=== PATIENT | female | born 1955 | race Native Hawaiian/Other Pacific Islander ===

== ENCOUNTER → 2016-10-21 | Outpatient (CLI) | payer MEDICARE, OTHER ==
--- NOTE | 2016-10-21 15:15 | XR ---
EXAMINATION TYPE: XR chest 2V DATE OF EXAM: 10/21/2016 3:09 PM COMPARISON: 12/31/11 HISTORY: Shortness of breath TECHNIQUE: Frontal and lateral views of the chest are obtained. FINDINGS: Scattered senescent parenchymal changes noted. Hyperinflation compatible with COPD. No evidence for infiltrate. No evidence for atelectasis. Heart size is stable. Mediastinal structures are stable and grossly unremarkable. No evidence for hilar prominence. Degenerative changes dorsal spine. IMPRESSION: 1. No evidence for acute pulmonary disease.
== END | disposition home or self-care (01) ==
LOC: RADXRMAIN 14:52
PROVIDERS: ATTEND Nurse Practitioner Primary Care
DX: R05 Cough (principal)
CPT/HCPCS: 71020

== ENCOUNTER → 2016-12-28 | Outpatient (CLI) | payer MEDICARE, OTHER ==
[2016-12-28 09:25] LABS: Basophils # (A) 0.1 k/uL (0-0.2); Basophils % (A) 1 %; CH 28.9; CHCM 32.3; Eosinophils # (A) 0.4 k/uL (0-0.7); Eosinophils % (A) 4 %; HCT 46.4 % (34.0-46.0); HDW 2.44; HGB 14.8 gm/dL (11.4-16.0); Luc # (Auto) 0.45; Luc % (Auto) 4; Lymphocytes # (A) 2.7 k/uL (1.0-4.8); Lymphocytes % (A) 25 %; MCH 28.7 pg (25.0-35.0); MCHC 31.9 g/dL (31.0-37.0); Mean Platelet Volume 8.3; Monocytes # (A) 0.6 k/uL (0-1.0); Monocytes % (A) 5 %; Neutrophils # (A) 6.6 k/uL (1.3-7.7); Neutrophils % (A) 61 %; RBC 5.16 m/uL (3.80-5.40); RDW 13.9 % (11.5-15.5); WBC 10.8 k/uL (3.8-10.6); WBC (Perox) 10.85
[2016-12-28 09:35] LABS: Glucose 150 mg/dL (74-99); Total Protein 7.6 g/dL (6.3-8.2)
[2016-12-28 09:36] LABS: ALT 39 U/L (9-52); AST 37 U/L (14-36); Alkaline Phosphatase 133 U/L (38-126); Anion Gap 13 mmol/L; Blood Urea Nitrogen 11 mg/dL (7-17); Calcium 8.8 mg/dL (8.4-10.2); Carbon Dioxide 26 mmol/L (22-30); Chloride 105 mmol/L (98-107); Cholesterol 158 mg/dL (<200); HDL Cholesterol 42 mg/dL (40-60); Non-African American GFR(MDRD) >60 (>60 ml/min/1.73 sqM); Potassium 4.3 mmol/L (3.5-5.1); Sodium 144 mmol/L (137-145); Total Bilirubin 0.8 mg/dL (0.2-1.3); Triglycerides 241 mg/dL (<150)
[2016-12-28 11:56] LABS: Hemoglobin A1C 6.9 % (4.2-6.1)
== END | disposition home or self-care (01) ==
LOC: LABWHC1 08:58
PROVIDERS: ATTEND Nurse Practitioner Primary Care
DX: E78.1 Pure hyperglyceridemia (principal); J44.9 Chronic obstructive pulmonary disease, unspecified; R73.09 Other abnormal glucose
CPT/HCPCS: 36415; 80053; 80061; 83036; 85025

== ENCOUNTER → 2017-02-07 | Outpatient (CLI) | payer MEDICARE, OTHER ==
--- NOTE | 2017-02-07 18:01 | XR ---
EXAMINATION TYPE: XR lumbar spine 2 or 3V DATE OF EXAM: 02/07/2017 5:08 PM COMPARISON: NONE HISTORY: Chronic back pain TECHNIQUE: 3 views FINDINGS: The lumbar vertebra have fairly normal alignment. Posterior elements are intact. Sacroiliac joints are intact. There is mild spurring of the endplates. There is no sign of compression fracture . IMPRESSION: Mild spondylotic changes. No fracture.
--- NOTE | 2017-02-07 18:05 | XR ---
EXAMINATION TYPE: XR thoracic spine 2V DATE OF EXAM: 02/07/2017 5:08 PM COMPARISON: NONE HISTORY: Back pain TECHNIQUE: 5 views FINDINGS: The vertebrae are fairly normal alignment. There is mild anterior spurring throughout the t horacic spine. There is no paraspinal mass. Posterior elements are intact. IMPRESSION: Mild multilevel spondylosis. No fracture seen.
== END | disposition home or self-care (01) ==
LOC: RADXRMAIN 16:00
PROVIDERS: ATTEND Internal Medicine
DX: M47.814 Spondylosis without myelopathy or radiculopathy, thoracic region (principal); M47.816 Spondylosis without myelopathy or radiculopathy, lumbar region
CPT/HCPCS: 72070; 72100

== ENCOUNTER → 2018-02-15 | Outpatient (CLI) | payer MEDICARE, OTHER ==
--- NOTE | 2018-02-15 08:44 | US ---
EXAMINATION TYPE: US abdomen complete DATE OF EXAM: 02/15/2018 COMPARISON: CT abdomen and pelvis January 02 2012 CLINICAL HISTORY: R74.8 elevated liver enzymes. EXAM MEASUREMENTS: Liver Length: 15.9 cm Gallbladder Wall: Surgically absent cm CBD: 0.5 cm Spleen: 10.9 cm Right Kidney: 12.5 x 5.6 x 5.0 cm Left Kidney: 13.3 x 5.7 x 5.6 cm Pancreas: Obscured by bowel gas Liver: Partially Obscured by overlying bowel gas. Gallbladder: Surgically absent Evidence for sonographic Miranda's sign: No CBD: wnl Spleen: wnl Right Kidney: wnl Left Kidney: wnl Upper IVC: Obscured by overlying bowel gas Abd Aorta: Partially Obscured by overlying bowel gas. Proximal aorta not well visualized. The visualized liver is heterogeneously hyperechoic. Evaluation for focal masses is suboptimal due to the heterogeneity. No suspicious intrahepatic ductal dilatation is seen. The intrahepatic portion of the IVC is not well seen and visualized abdominal aorta are within normal limits. The gallbladder is surgically absent.. Common bile duct is unremarkable. The pancreas is obscured by overlying bowel gas on images saved. The spleen is unremarkable. Kidneys are symmetric and free of hydronephrosis. No renal lesions are seen. IMPRESSION: Suboptimal study, heterogeneous hyperechoic appearance of liver is likely on basis of dif fuse fatty infiltration, product of underlying hepatocellular disease is not excluded. Imaging guided random biopsy for tissue analysis can be performed if desired.
== END | disposition home or self-care (01) ==
LOC: RADUSWWP 07:57
PROVIDERS: ATTEND Internal Medicine
DX: K76.9 Liver disease, unspecified (principal)
CPT/HCPCS: 76700

== ENCOUNTER → 2018-05-23 | Outpatient (CLI) | payer MEDICARE, OTHER ==
[2018-05-23 12:27] LABS: Basophils # (A) 0.1 k/uL (0-0.2); Basophils % (A) 1 %; Eosinophils # (A) 0.2 k/uL (0-0.7); Eosinophils % (A) 2 %; HCT 48.2 % (34.0-46.0); HGB 15.3 gm/dL (11.4-16.0); Lymphocytes # (A) 3.5 k/uL (1.0-4.8); Lymphocytes % (A) 34 %; MCH 28.5 pg (25.0-35.0); MCHC 31.7 g/dL (31.0-37.0); MCV 89.9 fL (80.0-100.0); Mean Platelet Volume 7.7; Monocytes # (A) 0.4 k/uL (0-1.0); Monocytes % (A) 4 %; Neutrophils # (A) 5.9 k/uL (1.3-7.7); Neutrophils % (A) 58 %; Platelet Count 256 k/uL (150-450); RBC 5.37 m/uL (3.80-5.40); RDW 13.4 % (11.5-15.5); WBC 10.2 k/uL (3.8-10.6)
[2018-05-23 12:33] LABS: ALT 47 U/L (9-52); AST 51 U/L (14-36); Albumin 3.8 g/dL (3.5-5.0); Alkaline Phosphatase 141 U/L (38-126); Anion Gap 6 mmol/L; Blood Urea Nitrogen 14 mg/dL (7-17); Calcium 8.6 mg/dL (8.4-10.2); Carbon Dioxide 29 mmol/L (22-30); Chloride 103 mmol/L (98-107); Cholesterol 177 mg/dL (<200); Glucose 171 mg/dL (74-99); HDL Cholesterol 51 mg/dL (40-60); LDL Cholesterol,Calculated 78 mg/dL (0-99); Potassium 4.4 mmol/L (3.5-5.1); Sodium 138 mmol/L (137-145); Total Bilirubin 0.7 mg/dL (0.2-1.3); Total Protein 7.1 g/dL (6.3-8.2); Triglycerides 241 mg/dL (<150)
[2018-05-23 18:21] LABS: Hemoglobin A1C 8.2 % (4.0-6.0)
== END | disposition home or self-care (01) ==
LOC: LABWHC1 11:44
DX: E78.1 Pure hyperglyceridemia (principal); E11.9 Type 2 diabetes mellitus without complications; E55.9 Vitamin D deficiency, unspecified
CPT/HCPCS: 36415; 80053; 80061; 82306; 83036; 85025

== ENCOUNTER → 2018-11-07 | Outpatient (CLI) | payer MEDICARE, OTHER ==
--- NOTE | 2018-11-07 12:02 | XR ---
EXAMINATION TYPE: XR chest 2V DATE OF EXAM: 11/07/2018 COMPARISON: Prior chest x-ray 10/21/2016 HISTORY: COPD exacerbation, cough and shortness of breath TECHNIQUE: Frontal and lateral views of the chest are obtained. FINDINGS: Patient is rotated. Cardiomediastinal silhouette, pulmonary vascularity and mair are stabl e. No evident airspace disease, pneumothorax, or pleural effusion. Lung volumes are low. IMPRESSION: No acute cardiopulmonary process.
== END | disposition home or self-care (01) ==
LOC: RADXRMAIN 09:54
PROVIDERS: ATTEND Internal Medicine
DX: J44.1 Chronic obstructive pulmonary disease with (acute) exacerbation (principal)
CPT/HCPCS: 71046

== ENCOUNTER 2018-11-09 17:12 | Inpatient (IN) | payer MEDICARE, OTHER ==
[2018-11-09] MEDS ORDERED: ALBUTEROL NEBULIZED 2.5 MG/3 ML INHALATION STA (17:24)
[2018-11-09] MEDS ORDERED: methylPREDNISolone SOD SUCCI 125 MG/2 ML VIAL IV STA (17:24)
[2018-11-09] MEDS ORDERED: IPRATROPIUM 0.5 MG/2.5 ML NEBU INHALATION STA (17:24)
--- NOTE | 2018-11-09 17:32 | ED ---
General Adult HPI - General Chief complaint: Shortness of Breath Stated complaint: ALFRED, Hx COPD Time Seen by Provider: 11/09/18 17:19 Source: patient, RN notes reviewed, old records reviewed Mode of arrival: ambulatory Limitations: no limitations - History of Present Illness Initial comments: 63-year-old female, history of COPD presenting with increased cough and dyspnea for the past one week. Patient was seen by her primary care physician 2 days ago, prescribed antibiotics and steroids, symptoms have failed to improve, they have worsened over the past several days. Cough is nonproductive. No history of fever or chills. No history of weight gain or lower extremity swelling. No history of CAD or congestive heart failure. Patient's does reports bilateral lower rib pain which is worse with coughing. - Related Data Home Medications Medication Instructions Recorded Confirmed Azithromycin [Zithromax Z-pack] See Taper PO DIRECTED 11/09/18 11/09/18 methylPREDNISolone Dose Pack See Taper PO DIRECTED 11/09/18 11/09/18 [Medrol Dose Pack] Allergies Allergy/AdvReac Type Severity Reaction Status Date / Time Iodinated Contrast- Oral and Allergy "THROAT Verified 11/09/18 18:58 IV Dye CLOSES UP" [Iodinated Contrast Media - IV Dye] ketorolac tromethamine Allergy Swelling Verified 11/09/18 18:58 [From Toradol] Sulfa (Sulfonamide Allergy Swelling Verified 11/09/18 18:58 Antibiotics) tromethamine Allergy Swelling Verified 11/09/18 18:58 cashews Allergy Unknown Uncoded 11/09/18 17:18 Review of Systems ROS Statement: Those systems with pertinent positive or pertinent negative responses have been documented in the HPI. ROS Other: All systems not noted in ROS Statement are negative. Past Medical History Past Medical History: COPD Additional Past Medical History / Comment(s): STM LOSS, INTERMITTENT NUMBNESS MORALES ARMS,CURRENT STEROID USE, GENERALIZED RASH FOR APPROX 4 MOS,,LEUKOCYTOSIS, MENIERE'S SYNDROME, OLD INJURY TO LEFT FOOT-PAINFUL AT TIMES W/ CERTAIN. MOVEMENTS,DEGENERATIVE DISC DISEASE TO NECK AND BACK History of Any Multi-Drug Resistant Organisms: None Reported Past Psychological History: No Psychological Hx Reported Smoking Status: Never smoker Past Alcohol Use History: None Reported Past Drug Use History: None Reported General Exam Limitations: no limitations General appearance: alert, in no apparent distress Head exam: Present: atraumatic, normocephalic Eye exam: Present: normal appearance, PERRL, EOMI ENT exam: Present: normal exam Neck exam: Present: normal inspection, tenderness Respiratory exam: Present: respiratory distress, wheezes, decreased breath sounds Cardiovascular Exam: Present: regular rate, normal rhythm GI/Abdominal exam: Present: soft. Absent: distended, tenderness Extremities exam: Present: normal inspection, normal capillary refill. Absent: pedal edema, calf tenderness Neurological exam: Present: alert, oriented X3, CN II-XII intact. Absent: motor sensory deficit Psychiatric exam: Present: normal affect, normal mood Skin exam: Present: dry, intact. Absent: cyanosis, diaphoretic Course Vital Signs 11/09/18 11/09/18 11/09/18 17:15 17:34 17:50 Temperature 98.4 F Pulse Rate 87 88 93 Respiratory 26 H Rate Blood Pressure 134/78 O2 Sat by Pulse 94 L Oximetry 11/09/18 11/09/18 19:00 19:02 Temperature Pulse Rate 88 Respiratory 26 H 22 Rate Blood Pressure 107/68 O2 Sat by Pulse 95 Oximetry EKG Findings - EKG Comments: EKG Findings:: EKG: Normal sinus rhythm, left axis deviation, LVH, rate of 80, MN interval 136, QRS duration 108, QTC 445, no ST segment changes Medical Decision Making - Medical Decision Making 63-year-old female history COPD presenting with cough and dyspnea. She has been on antibiotics and steroids from her primary care physician with minimal improvement. Patient has diminished breath sounds bilaterally with bilateral wheezing. Laboratory studies reveal mild leukocytosis, 14.1, stable hemoglobin , lactic of 2.7. Troponin and BNP are negative. Influenza negative. Chest x- ray does show concern for pulmonary edema versus interstitial pneumonia. Patient started on ceftriaxone and azithromycin, exam and history more consistent with pneumonia. Patient will be treated for COPD exacerbation and community-acquired pneumonia. Case discussed with Dr. Garcia, will admit patient , pulmonology placed on consult. - Lab Data Result diagrams: 11/09/18 18:30 11/09/18 18:30 Lab Results 11/09/18 11/09/18 11/09/18 Range/Units 18:30 18:30 18:30 WBC 14.1 H (3.8-10.6) k/uL RBC 5.12 (3.80-5.40) m/uL Hgb 14.7 (11.4-16.0) gm/dL Hct 45.9 (34.0-46.0) % MCV 89.6 (80.0-100.0) fL MCH 28.8 (25.0-35.0) pg MCHC 32.1 (31.0-37.0) g/dL RDW 13.6 (11.5-15.5) % Plt Count 241 (150-450) k/uL Neutrophils % 69 % Lymphocytes % 24 % Monocytes % 6 % Eosinophils % 1 % Basophils % 1 % Neutrophils # 9.7 H (1.3-7.7) k/uL Lymphocytes # 3.3 (1.0-4.8) k/uL Monocytes # 0.8 (0-1.0) k/uL Eosinophils # 0.1 (0-0.7) k/uL Basophils # 0.1 (0-0.2) k/uL PT (9.0-12.0) sec INR (<1.2) APTT (22.0-30.0) sec Sodium 136 L (137-145) mmol/L Potassium 4.4 (3.5-5.1) mmol/L Chloride 99 (98-107) mmol/L Carbon Dioxide 27 (22-30) mmol/L Anion Gap 10 mmol/L BUN 21 H (7-17) mg/dL Creatinine 0.83 (0.52-1.04) mg/dL Est GFR (CKD-EPI)AfAm 89 (>60 ml/min/1.73 sqM) Est GFR (CKD-EPI)NonAf 77 (>60 ml/min/1.73 sqM) Glucose 165 H (74-99) mg/dL Plasma Lactic Acid Ramu (0.7-2.0) mmol/L Calcium 8.9 (8.4-10.2) mg/dL Magnesium 2.1 (1.6-2.3) mg/dL Total Bilirubin 0.7 (0.2-1.3) mg/dL AST 35 (14-36) U/L ALT 37 (9-52) U/L Alkaline Phosphatase 127 H (38-126) U/L Total Creatine Kinase 137 H (30-135) U/L CK-MB (CK-2) 0.8 (0.0-2.4) ng/mL CK-MB (CK-2) Rel Index 0.6 Troponin I <0.012 (0.000-0.034) ng/mL NT-Pro-B Natriuret Pep pg/mL Total Protein 7.6 (6.3-8.2) g/dL Albumin 4.1 (3.5-5.0) g/dL Influenza Type A RNA (Not Detectd) Influenza Type B (PCR) (Not Detectd) 11/09/18 11/09/18 11/09/18 Range/Units 18:30 18:30 18:30 WBC (3.8-10.6) k/uL RBC (3.80-5.40) m/uL Hgb (11.4-16.0) gm/dL Hct (34.0-46.0) % MCV (80.0-100.0) fL MCH (25.0-35.0) pg MCHC (31.0-37.0) g/dL RDW (11.5-15.5) % Plt Count (150-450) k/uL Neutrophils % % Lymphocytes % % Monocytes % % Eosinophils % % Basophils % % Neutrophils # (1.3-7.7) k/uL Lymphocytes # (1.0-4.8) k/uL Monocytes # (0-1.0) k/uL Eosinophils # (0-0.7) k/uL Basophils # (0-0.2) k/uL PT 9.7 (9.0-12.0) sec INR 0.9 (<1.2) APTT 22.3 (22.0-30.0) sec Sodium (137-145) mmol/L Potassium (3.5-5.1) mmol/L Chloride (98-107) mmol/L Carbon Dioxide (22-30) mmol/L Anion Gap mmol/L BUN (7-17) mg/dL Creatinine (0.52-1.04) mg/dL Est GFR (CKD-EPI)AfAm (>60 ml/min/1.73 sqM) Est GFR (CKD-EPI)NonAf (>60 ml/min/1.73 sqM) Glucose (74-99) mg/dL Plasma Lactic Acid Ramu 2.6 H* (0.7-2.0) mmol/L Calcium (8.4-10.2) mg/dL Magnesium (1.6-2.3) mg/dL Total Bilirubin (0.2-1.3) mg/dL AST (14-36) U/L ALT (9-52) U/L Alkaline Phosphatase (38-126) U/L Total Creatine Kinase (30-135) U/L CK-MB (CK-2) (0.0-2.4) ng/mL CK-MB (CK-2) Rel Index Troponin I (0.000-0.034) ng/mL NT-Pro-B Natriuret Pep 163 pg/mL Total Protein (6.3-8.2) g/dL Albumin (3.5-5.0) g/dL Influenza Type A RNA (Not Detectd) Influenza Type B (PCR) (Not Detectd) 11/09/18 Range/Units 18:30 WBC (3.8-10.6) k/uL RBC (3.80-5.40) m/uL Hgb (11.4-16.0) gm/dL Hct (34.0-46.0) % MCV (80.0-100.0) fL MCH (25.0-35.0) pg MCHC (31.0-37.0) g/dL RDW (11.5-15.5) % Plt Count (150-450) k/uL Neutrophils % % Lymphocytes % % Monocytes % % Eosinophils % % Basophils % % Neutrophils # (1.3-7.7) k/uL Lymphocytes # (1.0-4.8) k/uL Monocytes # (0-1.0) k/uL Eosinophils # (0-0.7) k/uL Basophils # (0-0.2) k/uL PT (9.0-12.0) sec INR (<1.2) APTT (22.0-30.0) sec Sodium (137-145) mmol/L Potassium (3.5-5.1) mmol/L Chloride (98-107) mmol/L Carbon Dioxide (22-30) mmol/L Anion Gap mmol/L BUN (7-17) mg/dL Creatinine (0.52-1.04) mg/dL Est GFR (CKD-EPI)AfAm (>60 ml/min/1.73 sqM) Est GFR (CKD-EPI)NonAf (>60 ml/min/1.73 sqM) Glucose (74-99) mg/dL Plasma Lactic Acid Ramu (0.7-2.0) mmol/L Calcium (8.4-10.2) mg/dL Magnesium (1.6-2.3) mg/dL Total Bilirubin (0.2-1.3) mg/dL AST (14-36) U/L ALT (9-52) U/L Alkaline Phosphatase (38-126) U/L Total Creatine Kinase (30-135) U/L CK-MB (CK-2) (0.0-2.4) ng/mL CK-MB (CK-2) Rel Index Troponin I (0.000-0.034) ng/mL NT-Pro-B Natriuret Pep pg/mL Total Protein (6.3-8.2) g/dL Albumin (3.5-5.0) g/dL Influenza Type A RNA Not Detected (Not Detectd) Influenza Type B (PCR) Not Detected (Not Detectd) Disposition Clinical Impression: Acute exacerbation of chronic obstructive airways disease, Community acquired pneumonia Disposition: ADMITTED IP TO THIS HOSP Condition: Stable Is patient prescribed a controlled substance at d/c from ED?: No Referrals: Pinky Giraldo MD [Primary Care Provider] - 1-2 days Decision to Admit Reason: Admit from EC Decision Date: 11/09/18 Decision Time: 19:50
[2018-11-09 18:50] LABS: Basophils # (A) 0.1 k/uL (0-0.2); Basophils % (A) 1 %; Eosinophils # (A) 0.1 k/uL (0-0.7); Eosinophils % (A) 1 %; HCT 45.9 % (34.0-46.0); HGB 14.7 gm/dL (11.4-16.0); Lymphocytes # (A) 3.3 k/uL (1.0-4.8); Lymphocytes % (A) 24 %; MCH 28.8 pg (25.0-35.0); MCHC 32.1 g/dL (31.0-37.0); MCV 89.6 fL (80.0-100.0); Mean Platelet Volume 7.5; Monocytes # (A) 0.8 k/uL (0-1.0); Monocytes % (A) 6 %; Neutrophils # (A) 9.7 k/uL (1.3-7.7); Neutrophils % (A) 69 %; Platelet Count 241 k/uL (150-450); RBC 5.12 m/uL (3.80-5.40); RDW 13.6 % (11.5-15.5); WBC 14.1 k/uL (3.8-10.6)
--- NOTE | 2018-11-09 19:00 | XR ---
EXAMINATION TYPE: XR chest 2V DATE OF EXAM: 11/09/2018 COMPARISON: 11/07/2018 HISTORY: Difficulty breathing TECHNIQUE: Frontal and lateral views of the chest are obtained. FINDINGS: There is mild diffuse interstitial prominence throughout. This is has progressed in compar brenda to the prior of 11/07/2018. Cardia mediastinal silhouette is upper limits of normal. Mild multilev el degenerative changes of the thoracic spine are noted. IMPRESSION: Reticular interstitial opacities throughout may relate to mild interstitial pneumonitis or mild interstitial pulmonary edema.
[2018-11-09 19:02] LABS: Albumin 4.1 g/dL (3.5-5.0); Calcium 8.9 mg/dL (8.4-10.2); Magnesium 2.1 mg/dL (1.6-2.3); Potassium 4.4 mmol/L (3.5-5.1); Total Bilirubin 0.7 mg/dL (0.2-1.3); Total Protein 7.6 g/dL (6.3-8.2)
[2018-11-09 19:06] LABS: Creatine Kinase 137 U/L (30-135)
[2018-11-09] MEDS ORDERED: SODIUM CHLORIDE 0.9% 500 ML 500 ML IV ONE (19:16)
[2018-11-09] MEDS ORDERED: AZITHROMYCIN 500 MG in SODIUM CHLORIDE 0.9% 250 ML IVPB STA (19:17)
[2018-11-09 19:19] LABS: Creatine Kinase MB 0.8 ng/mL (0.0-2.4); Troponin I <0.012 ng/mL (0.000-0.034)
[2018-11-09 19:27] LABS: INR 0.9 (<1.2); Partial Thromboplastin Time 22.3 sec (22.0-30.0); Prothrombin Time 9.7 sec (9.0-12.0)
[2018-11-09] MEDS ORDERED: IPRATROPIUM-ALBUTEROL 3 ML NEB INHALATION PRN (19:44)
[2018-11-09] MEDS ORDERED: ALBUTEROL NEBULIZED 2.5 MG/3 ML INHALATION PRN (19:45)
[2018-11-09] MEDS: SODIUM CHLORIDE 0.9% 1,000 ML IV SCH (20:14)
[2018-11-09] MEDS: IPRATROPIUM-ALBUTEROL 3 ML NEB INHALATION SCH (20:33)
[2018-11-09 21:28] LABS: Glucose,Whole Blood 239 mg/dL (75-99)
[2018-11-09] MEDS ORDERED: MECLIZINE 25 MG TAB PO PRN (23:06)
[2018-11-09] MEDS ORDERED: traMADol 50 MG TAB PO PRN (23:06)
[2018-11-09] MEDS ORDERED: ALPRAZolam 0.5 MG TAB PO PRN (23:06)
[2018-11-09] MEDS ORDERED: IBUPROFEN 600 MG TAB PO PRN (23:06)
[2018-11-10] MEDS: INSULIN ASPART (NovoLOG) 100 UNIT/ML VIAL SQ SCH ×5 (00:03→21:03)
[2018-11-10] MEDS: methylPREDNISolone SOD SUCCI 125 MG/2 ML VIAL IV SCH ×4 (00:04→17:36)
[2018-11-10] MEDS: IPRATROPIUM-ALBUTEROL 3 ML NEB INHALATION SCH ×4 (04:37→20:43)
[2018-11-10] MEDS: FERROUS SULFATE 325 MG TAB PO SCH (07:28)
[2018-11-10] MEDS: SODIUM CHLORIDE 0.9% 1,000 ML IV SCH ×2 (07:29→21:04)
[2018-11-10 07:42] LABS: Glucose,Whole Blood 255 mg/dL (75-99)
[2018-11-10] MEDS ORDERED: metFORMIN 500 MG TAB PO SCH (09:00)
[2018-11-10] MEDS ORDERED: AZITHROMYCIN 500 MG in SODIUM CHLORIDE 0.9% 250 ML IVPB SCH (09:00)
[2018-11-10 11:31] LABS: Hemoglobin A1C 8.6 % (4.0-6.0)
[2018-11-10] MEDS: MORPHINE SULFATE 4 MG/ML SYRINGE IVP PRN ×3 (11:50→21:01)
[2018-11-10 12:04] LABS: Glucose,Whole Blood 229 mg/dL (75-99)
--- NOTE | 2018-11-10 12:38 | P.HPIM ---
History of Present Illness H&P Date: 11/10/18 This is a 63-year-old female patient of Dr. Giraldo and Dr. Ortega with past medical history of COPD, mild persistent asthma, chronic hypoxic respiratory failure on home O2 at 3 L nasal cannula, degenerative disc disease of the neck and back with extremity neuropathy, chronic leukocytosis monitored by Dr. Ballard. Patient had episode of atrial fibrillation after having colonoscopy and follow up with Dr. Ann. She has not required any anticoagulation. Regarding diabetes, patient states she takes the metformin as needed only. She states her last hemoglobin A1c was 6.8. Patient states that she has had difficulty breathing with a hacking cough with no sputum production. No chest pain that hurts when she takes a deep breath. She denies any fever, no leg edema. She has seen Dr. Giraldo and was started on steroids inhalers and antibiotic without improvement and patient came into [facility] for evaluation. She was afebrile, tachypneic, heart rate running in the 80s and 90s, pulse ox 94%. Blood pressure 134/78. Leukocytosis of 14.1, creatinine 0.83, blood sugar 239, lactic acid 2.6. Alkaline phosphatase 127, troponin negative, influenza testing negative. Chest x-ray shows reticular interstitial opacities throughout May relate to mild interstitial pneumonitis or mild interstitial pulmonary edema. ProBNP 163. Hemoglobin A1c 8.6. Patient was started on IV Solu-Medrol, IV fluids, nebulizer treatments antibiotics and consult was requested with Dr. Ortega and patient admitted to the [facility] floor. Review of Systems All systems: negative Constitutional: Reports fatigue, Reports weakness, Denies chills, Denies fever, Denies poor appetite, Denies weight loss Eyes: denies blurred vision, denies pain Ears, nose, mouth and throat: Denies dysphagia, Denies headache, Denies sore throat, Denies vertigo Cardiovascular: Reports decreased exercise tolerance, Reports dyspnea on exertion, Denies chest pain, Denies edema, Denies leg edema, Denies lightheadedness, Denies shortness of breath, Denies syncope Respiratory: Reports congestion, Reports cough, Reports dyspnea, Reports home oxygen, Reports respiratory infections, Reports wheezing, Denies cough with sputum, Denies excessive sputum, Denies hemoptysis Gastrointestinal: Denies abdominal pain, Denies diarrhea, Denies loss of appetite, Denies melena, Denies nausea, Denies vomiting Genitourinary: Denies dysuria, Denies hematuria, Denies urgency, Denies urinary frequency Musculoskeletal: Denies frequent falls, Denies gait dysfunction, Denies muscle weakness, Denies myalgias Integumentary: Denies pruritus, Denies rash, Denies wounds Neurological: Denies aphasia, Denies change in mentation, Denies change in speech, Denies gait dysfunction, Denies numbness, Denies seizures, Denies weakness Psychiatric: Denies anxiety, Denies depression Endocrine: Denies fatigue, Denies weight change Past Medical History Past Medical History: Atrial Fibrillation, Asthma, Chest Pain / Angina, COPD, Diabetes Mellitus, Memory Impairment, Osteoarthritis (OA), Pneumonia, Sleep Apnea/CPAP/BIPAP Additional Past Medical History / Comment(s): Short term memory LOSS, INTERMITTENT NUMBNESS MORALES arms, LEUKOCYTOSIS, pt stated she see's dr ballard-he monitors wbc, MENIERE'S SYNDROME, past stress test, 2008 OLD INJURY TO LEFT FOOT , never had sx on it-PAINFUL AT TIMES W/ CERTAIN. pt stated "has had afib after aa for sx, pt stated they felt she had a reaction to aa". MOVEMENTS, DEGENERATIVE DISC DISEASE TO NECK AND BACK, 02 3 liter n/c at hs and prn. History of Any Multi-Drug Resistant Organisms: None Reported Past Surgical History: Cholecystectomy, Heart Catheterization, Hysterectomy Additional Past Surgical History / Comment(s): "repair of membrane leakage rt side of head" had sx at [place]. colonosocpy/polypectomy Past Anesthesia/Blood Transfusion Reactions: No Reported Reaction, Previous Problems w/ Anesthesia Additional Past Anesthesia/Blood Transfusion Reaction / Comment(s): pt stated she ahs had episodes of afib when given aa and has'nt happened a otherwise, thinks it was adverse reaction to the aa." Smoking Status: Never smoker Additional Past Alcohol Use History / Comment(s): The patient is a lifelong still occur but was exposed to secondhand smoke. No marijuana, illicit drug use or alcohol use. - Past Family History Mother Additional Family Medical History / Comment(s): Mother at age 84 from COPD and lung cancer. Father Additional Family Medical History / Comment(s): Father at age 82 from pneumonia but also had history of COPD, lung tumor, Parkinson's. Brother(s) Additional Family Medical History / Comment(s): Patient has 2 brothers but she does not know their medical history. Sister(s) Additional Family Medical History / Comment(s): Patient has 6 sisters one has lung problems, one thyroid cancer, one with arthritis and bowel problems, one with cardiovascular disease, one has had 2 myocardial infarctions and a stroke, one large benign abdominal tumor. Medications and Allergies Home Medications Medication Instructions Recorded Confirmed Type ALPRAZolam [Xanax] 0.5 mg PO DAILY PRN 11/09/18 11/09/18 History Azithromycin [Zithromax Z-pack] See Taper PO DIRECTED 11/09/18 11/09/18 History Ferrous Sulfate [Feosol] 325 mg PO DAILY 11/09/18 11/09/18 History Ibuprofen [Motrin] 600 mg PO Q8HR PRN 11/09/18 11/09/18 History Meclizine [Antivert] 25 mg PO TID PRN 11/09/18 11/09/18 History Vitamin D3(Unknown Dose) 1 tab PO DAILY 11/09/18 11/09/18 History metFORMIN HCL [Glucophage] 500 mg PO DAILY PRN 11/09/18 11/09/18 History methylPREDNISolone Dose Pack See Taper PO DIRECTED 11/09/18 11/09/18 History [Medrol Dose Pack] traMADol HCL [Ultram] 50 mg PO Q6H PRN 11/09/18 11/09/18 History Allergies Allergy/AdvReac Type Severity Reaction Status Date / Time Iodinated Contrast- Oral and Allergy "THROAT Verified 11/09/18 18:58 IV Dye CLOSES UP" [Iodinated Contrast Media - IV Dye] ketorolac tromethamine Allergy Swelling Verified 11/09/18 18:58 [From Toradol] peanut Allergy Rash/Hives Verified 11/10/18 00:09 Sulfa (Sulfonamide Allergy Swelling Verified 11/09/18 18:58 Antibiotics) tromethamine Allergy Swelling Verified 11/09/18 18:58 [email or web address] Allergy Unknown Uncoded 11/09/18 17:18 Physical Exam Vitals: Vital Signs Temp Pulse Pulse Resp BP BP Pulse Ox 11/10/18 07:00 97.8 F 73 22 111/67 98 11/10/18 04:44 92 11/10/18 04:41 97 11/10/18 04:38 89 11/09/18 21:37 98.1 F 82 24 121/71 93 L 11/09/18 21:03 86 18 110/70 97 11/09/18 20:44 82 11/09/18 20:35 79 11/09/18 19:02 88 22 107/68 95 11/09/18 19:00 26 H 11/09/18 17:50 93 11/09/18 17:34 88 11/09/18 17:15 98.4 F 87 26 H 134/78 94 L Intake and Output 11/09/18 11/10/18 11/10/18 22:59 06:59 14:59 Intake Total 500 100 Output Total 2 Balance 500 98 Intake: Oral 500 100 Output: Stool 2 Other: Voiding Method Toilet Toilet # Voids 1 2 Weight 117.934 kg Gen: This is a morbidly obese 63-year-old female. She is sitting up in a chair and is shown to be in now to moderate respiratory distress. Increased shortness of breath with talking. HEENT: Head is atraumatic, normocephalic. Pupils equal, round. Sclerae is anicteric. NECK: Supple. No JVD. No lymphadenopathy. No thyromegaly. LUNGS: Lung sounds diminished with crackles in the right side. No intercostal retractions. HEART: Regular rate and rhythm. No murmur. ABDOMEN: Soft. Bowel sounds are present. No masses. No tenderness. EXTREMITIES: No pedal edema. No calf tenderness. NEUROLOGICAL: Patient is awake, alert and oriented x3. Cranial nerves 2 through 12 are grossly intact. Results CBC & Chem 7: 11/09/18 18:30 11/09/18 18:30 Labs: Abnormal Lab Results - Last 24 Hours (Table) 11/09/18 11/09/18 11/09/18 Range/Units 18:30 18:30 18:30 WBC 14.1 H (3.8-10.6) k/uL Neutrophils # 9.7 H (1.3-7.7) k/uL Sodium 136 L (137-145) mmol/L BUN 21 H (7-17) mg/dL Glucose 165 H (74-99) mg/dL POC Glucose (mg/dL) (75-99) mg/dL Plasma Lactic Acid Ramu (0.7-2.0) mmol/L Alkaline Phosphatase 127 H (38-126) U/L Total Creatine Kinase 137 H (30-135) U/L 11/09/18 11/09/18 11/09/18 Range/Units 18:30 21:24 22:25 WBC (3.8-10.6) k/uL Neutrophils # (1.3-7.7) k/uL Sodium (137-145) mmol/L BUN (7-17) mg/dL Glucose (74-99) mg/dL POC Glucose (mg/dL) 239 H (75-99) mg/dL Plasma Lactic Acid Ramu 2.6 H* 2.6 H* (0.7-2.0) mmol/L Alkaline Phosphatase (38-126) U/L Total Creatine Kinase (30-135) U/L 11/10/18 Range/Units 07:21 WBC (3.8-10.6) k/uL Neutrophils # (1.3-7.7) k/uL Sodium (137-145) mmol/L BUN (7-17) mg/dL Glucose (74-99) mg/dL POC Glucose (mg/dL) 255 H (75-99) mg/dL Plasma Lactic Acid Ramu (0.7-2.0) mmol/L Alkaline Phosphatase (38-126) U/L Total Creatine Kinase (30-135) U/L Thrombosis Risk Factor Assmnt - DVT/VTE Prophylaxis DVT/VTE Prophylaxis: Pharmacologic Prophylaxis ordered - Choose All That Apply Any of the Below Risk Factors Present?: Yes Each Factor Represents 1 point: Abnormal pulmonary function (COPD), Obesity ( BMI >25) Other Risk Factors: Yes Each Risk Factor Represents 2 Points: Age 61-74 years Other congenital or acquired thrombophilia - If yes, enter type in comment: No Thrombosis Risk Factor Assessment Total Risk Factor Score: 4 Thrombosis Risk Factor Assessment Level: Moderate Risk Assessment and Plan Plan: 1. Acute on chronic hypoxic respiratory failure secondary to pneumonitis and COPD exacerbation, mild persistent asthma and sepsis that failed outpatient treatment. Consult with Dr. Ortega. Continue Solu-Medrol 60 mg every 6 hours, DuoNeb treatments 4 times daily and every 4 hours as needed, Pulmicort 1 mg twice daily, IV antibiotics with azithromycin and ceftriaxone. Echocardiogram ordered to check for pulmonary hypertension 2. Mild persistent asthma. Continue as in #1. Patient states she is to start monthly injections with Dr. Ortega but has not followed up since last March. 3. Chronic hypoxic respiratory failure on home O2 at 3 L nasal cannula. 4. Chronic leukocytosis under the care of Dr. Ballard next field generalized anxiety disorder. Continue alprazolam 0.5 mg daily as needed. 5. Chronic neck and back pain. Continue tramadol 50 mg every 6 hours as needed. 6. Diabetes mellitus type 2, uncontrolled with hyperglycemia. Elevated hemoglobin A1c. Metformin will be increased to twice daily 500 mg and start NovoLog scale with meals and at bedtime. 7. DVT prophylaxis. Lovenox subcu. 8. GI prophylaxis. Pepcid. Patient will be admitted to the hospital for a minimum of 3 night stay. Discharge plan: Most likely return home Impression and plan of care have been directed as dictated by the signing physician. Clarisse Jewell nurse practitioner acting as scribe for signing physician.
--- NOTE | 2018-11-10 13:06 | P.CNPUL ---
History of Present Illness Consult date: 11/10/18 Reason for consult: dyspnea, cough, asthma, COPD, pneumonia Chief complaint: Cough and shortness of breath History of present illness: Patient seen and examined covering for Dr. Ortega. This is a 63-year-old female who presented to the emergency department complaining of cough and shortness of breath. The patient states she follows with Dr. Ortega in the office and has a history of COPD. She states that she is on home oxygen at 3-4 L nasal cannula [id number]. She also does have a history of obstructive sleep apnea but states she was intolerant of CPAP in the past and she just wears oxygen at night. The patient is complaining of continued cough which is nonproductive. She denies fevers and chills at home. She states that she did see her primary care physician and was started on steroids and antibiotics but she continued to feel short of breath. She states she does have a nebulizer at home which she uses frequently but it did not seem to help her symptoms. The patient is apparently a lifelong never smoker but states she was exposed to secondhand smoke. Review of Systems All systems: negative Past Medical History Past Medical History: Atrial Fibrillation, Asthma, Chest Pain / Angina, COPD, Diabetes Mellitus, Memory Impairment, Osteoarthritis (OA), Pneumonia, Sleep Apnea/CPAP/BIPAP Additional Past Medical History / Comment(s): Short term memory LOSS, INTERMITTENT NUMBNESS MORALES arms, LEUKOCYTOSIS, pt stated she see's dr shane-he monitors wbc, MENIERE'S SYNDROME, past stress test, 2008 OLD INJURY TO LEFT FOOT , never had sx on it-PAINFUL AT TIMES W/ CERTAIN. pt stated "has had afib after aa for sx, pt stated they felt she had a reaction to aa". MOVEMENTS, DEGENERATIVE DISC DISEASE TO NECK AND BACK, 02 3 liter n/c at hs and prn. History of Any Multi-Drug Resistant Organisms: None Reported Past Surgical History: Cholecystectomy, Heart Catheterization, Hysterectomy Additional Past Surgical History / Comment(s): "repair of membrane leakage rt side of head" had sx at [place]. colonosocpy/polypectomy Past Anesthesia/Blood Transfusion Reactions: No Reported Reaction, Previous Problems w/ Anesthesia Additional Past Anesthesia/Blood Transfusion Reaction / Comment(s): pt stated she ahs had episodes of afib when given aa and has'nt happened a otherwise, thinks it was adverse reaction to the aa." Smoking Status: Never smoker Additional Past Alcohol Use History / Comment(s): The patient is a lifelong still occur but was exposed to secondhand smoke. No marijuana, illicit drug use or alcohol use. - Past Family History Mother Additional Family Medical History / Comment(s): Mother at age 84 from COPD and lung cancer. Father Additional Family Medical History / Comment(s): Father at age 82 from pneumonia but also had history of COPD, lung tumor, Parkinson's. Brother(s) Additional Family Medical History / Comment(s): Patient has 2 brothers but she does not know their medical history. Sister(s) Additional Family Medical History / Comment(s): Patient has 6 sisters one has lung problems, one thyroid cancer, one with arthritis and bowel problems, one with cardiovascular disease, one has had 2 myocardial infarctions and a stroke, one large benign abdominal tumor. Medications and Allergies Home Medications Medication Instructions Recorded Confirmed Type ALPRAZolam [Xanax] 0.5 mg PO DAILY PRN 11/09/18 11/09/18 History Azithromycin [Zithromax Z-pack] See Taper PO DIRECTED 11/09/18 11/09/18 History Ferrous Sulfate [Feosol] 325 mg PO DAILY 11/09/18 11/09/18 History Ibuprofen [Motrin] 600 mg PO Q8HR PRN 11/09/18 11/09/18 History Meclizine [Antivert] 25 mg PO TID PRN 11/09/18 11/09/18 History Vitamin D3(Unknown Dose) 1 tab PO DAILY 11/09/18 11/09/18 History metFORMIN HCL [Glucophage] 500 mg PO DAILY PRN 11/09/18 11/09/18 History methylPREDNISolone Dose Pack See Taper PO DIRECTED 11/09/18 11/09/18 History [Medrol Dose Pack] traMADol HCL [Ultram] 50 mg PO Q6H PRN 11/09/18 11/09/18 History Allergies Allergy/AdvReac Type Severity Reaction Status Date / Time Iodinated Contrast- Oral and Allergy "THROAT Verified 11/09/18 18:58 IV Dye CLOSES UP" [Iodinated Contrast Media - IV Dye] ketorolac tromethamine Allergy Swelling Verified 11/09/18 18:58 [From Toradol] peanut Allergy Rash/Hives Verified 11/10/18 00:09 Sulfa (Sulfonamide Allergy Swelling Verified 11/09/18 18:58 Antibiotics) tromethamine Allergy Swelling Verified 11/09/18 18:58 [email or web address] Allergy Unknown Uncoded 11/09/18 17:18 Physical Exam Osteopathic Statement: *. No significant issues noted on an osteopathic structural exam other than those noted in the History and Physical/Consult. Vitals: Vital Signs Temp Pulse Pulse Resp BP BP Pulse Ox 11/10/18 11:06 90 11/10/18 10:55 87 91 L 11/10/18 07:00 97.8 F 73 22 111/67 98 11/10/18 04:44 92 11/10/18 04:41 97 11/10/18 04:38 89 11/09/18 21:37 98.1 F 82 24 121/71 93 L 11/09/18 21:03 86 18 110/70 97 11/09/18 20:44 82 11/09/18 20:35 79 11/09/18 19:02 88 22 107/68 95 11/09/18 19:00 26 H 11/09/18 17:50 93 11/09/18 17:34 88 11/09/18 17:15 98.4 F 87 26 H 134/78 94 L Intake and Output 11/09/18 11/10/18 11/10/18 22:59 06:59 14:59 Intake Total 500 100 Output Total 2 Balance 500 98 Intake: Oral 500 100 Output: Stool 2 Other: Voiding Method Toilet Toilet # Voids 1 2 3 Weight 117.934 kg Gen.: Patient is alert and oriented 3, no acute distress, morbidly obese Cardiovascular: Regular rate and rhythm, S1/S2 Lungs: Bilateral crackles with hyperreactive cough Abdomen: Soft nontender nondistended positive bowel sounds Extremities: Trace edema Results - Laboratory Findings CBC and BMP: 11/09/18 18:30 11/09/18 18:30 PT/INR, D-dimer PT 9.7 sec (9.0-12.0) 11/09/18 18:30 INR 0.9 (<1.2) 11/09/18 18:30 Abnormal lab findings: Abnormal Labs 11/09/18 11/09/18 11/09/18 18:30 18:30 18:30 WBC 14.1 H Neutrophils # 9.7 H Sodium 136 L BUN 21 H Glucose 165 H POC Glucose (mg/dL) Hemoglobin A1c Plasma Lactic Acid Ramu Alkaline Phosphatase 127 H Total Creatine Kinase 137 H 11/09/18 11/09/18 11/09/18 18:30 18:30 21:24 WBC Neutrophils # Sodium BUN Glucose POC Glucose (mg/dL) 239 H Hemoglobin A1c 8.6 H Plasma Lactic Acid Ramu 2.6 H* Alkaline Phosphatase Total Creatine Kinase 11/09/18 11/10/18 11/10/18 22:25 07:21 08:57 WBC Neutrophils # Sodium BUN Glucose POC Glucose (mg/dL) 255 H Hemoglobin A1c Plasma Lactic Acid Ramu 2.6 H* 3.2 H* Alkaline Phosphatase Total Creatine Kinase 11/10/18 12:00 WBC Neutrophils # Sodium BUN Glucose POC Glucose (mg/dL) 229 H Hemoglobin A1c Plasma Lactic Acid Ramu Alkaline Phosphatase Total Creatine Kinase - Diagnostic Findings Chest x-ray: report reviewed, image reviewed Assessment and Plan Assessment: Acute on chronic hypoxic respiratory failure Interstitial pulmonary edema versus pneumonitis Hyperreactive cough Acute exacerbation of asthma/COPD, unknown asthma type History of obstructive sleep apnea, noncompliant with CPAP Morbid obesity Leukocytosis, possibly secondary to steroids, although it is noted by primary team that this is chronic and patient follows with hematology Elevated lactic acid possibly secondary to hypoxia Diabetes mellitus type 2 O2 to maintain saturation greater than or equal to 90%. Patient currently is on 2 L nasal cannula with O2 saturation 91% Pulmicort Duo nebs Perforomist Singulair Solu-Medrol Antibiotics Diuresis - monitor urine output and renal function AM CXR Echocardiogram pending Suspect cor pulmonale from uncontrolled obstructive sleep apnea Continue patient's home medications Sputum culture Decrease IVF Incentive spirometry and pulmonary hygiene Encourage ambulation Thank you for this consultation we will continue to follow along. Patient seen and examined covering for Dr. Ortega.
[2018-11-10] MEDS: FUROSEMIDE 10 MG/ML 2 ML VIAL IV SCH ×2 (13:20→21:03)
[2018-11-10] MEDS: metFORMIN 500 MG TAB PO SCH (17:36)
[2018-11-10 17:49] LABS: Glucose,Whole Blood 247 mg/dL (75-99)
--- NOTE | 2018-11-10 17:55 | ECHOF ---
Referral Reason:LVF MEASUREMENTS -------- HEIGHT: 157.5 cm WEIGHT: 117.9 kg BP: 117/70 RVIDd: 3.0 cm (< 3.3) IVSd: 1.3 cm (0.6 - 1.1) LVIDd: 3.7 cm (3.9 - 5.3) LVPWd: 1.4 cm (0.6 - 1.1) IVSs: 1.7 cm LVIDs: 2.7 cm LVPWs: 1.6 cm LA Diam: 3.4 cm (2.7 - 3.8) LAESV Index (A-L): 21.77 ml/m Ao Diam: 3.3 cm (2.0 - 3.7) AV Cusp: 2.4 cm (1.5 - 2.6) MV EXCURSION: 16.659 mm (> 18.000) MV EF SLOPE: 77 mm/s (70 - 150) EPSS: 1.6 cm MV E Raghavendra: 0.85 m/s MV DecT: 160 ms MV A Raghavendra: 1.01 m/s MV E/A Ratio: 0.84 RAP: 5.00 mmHg RVSP: 21.56 mmHg FINDINGS -------- Sinus rhythm. This was a technically adequate study. The left ventricular size is normal. There is moderate concentric left ventricular hypertrophy. O verall left ventricular systolic function is normal with, an EF between 55 - 60 %. The right ventricle is normal in size. Normal LA size by volume 22+/-6 ml/m2. The right atrium is normal in size. The aortic valve is trileaflet, and appears structurally normal. No aortic stenosis or regurgitation. The mitral valve is normal. Mild tricuspid regurgitation present. Right ventricular systolic pressure is normal at < 35 mmHg. The pulmonic valve was not well visualized. There is no pulmonic regurgitation present. The aortic root size is normal. IVC Not well visulized. There is no pericardial effusion. CONCLUSIONS -------- 1. Sinus rhythm. 2. This was a technically adequate study. 3. The left ventricular size is normal. 4. There is moderate concentric left ventricular hypertrophy. 5. Overall left ventricular systolic function is normal with, an EF between 55 - 60 %. 6. Normal LA size by volume 22+/-6 ml/m2. 7. The aortic valve is trileaflet, and appears structurally normal. No aortic stenosis or regurgitati on. 8. The mitral valve is normal. 9. Mild tricuspid regurgitation present. 10. Right ventricular systolic pressure is normal at < 35 mmHg. 11. The pulmonic valve was not well visualized. 12. The aortic root size is normal. 13. IVC Not well visulized. 14. There is no pericardial effusion. APPLICATIONS CONSULTANT: Venita Bunn RDCS
[2018-11-10 20:27] LABS: Glucose,Whole Blood 249 mg/dL (75-99)
[2018-11-10] MEDS: BUDESONIDE 1 MG/2 ML NEBU INHALATION SCH (20:43)
[2018-11-10] MEDS: FORMOTEROL FUMARATE 20 MCG/2 ML NEBU INHALATION SCH (20:43)
[2018-11-10] MEDS: MONTELUKAST 10 MG TAB PO SCH (20:53)
[2018-11-11] MEDS: methylPREDNISolone SOD SUCCI 125 MG/2 ML VIAL IV SCH ×3 (00:18→11:24)
[2018-11-11] MEDS: MORPHINE SULFATE 4 MG/ML SYRINGE IVP PRN ×5 (04:58→22:06)
[2018-11-11] MEDS: FAMOTIDINE 20 MG TAB PO SCH (08:00)
[2018-11-11] MEDS: ENOXAPARIN 40 MG/0.4 ML SYRINGE SQ SCH (08:00)
[2018-11-11] MEDS: FERROUS SULFATE 325 MG TAB PO SCH (08:00)
[2018-11-11] MEDS: metFORMIN 500 MG TAB PO SCH ×2 (08:00→17:00)
[2018-11-11] MEDS: INSULIN ASPART (NovoLOG) 100 UNIT/ML VIAL SQ SCH ×4 (08:00→21:46)
[2018-11-11] MEDS: AZITHROMYCIN 500 MG TAB PO SCH (08:00)
[2018-11-11 08:01] LABS: Glucose,Whole Blood 242 mg/dL (75-99)
[2018-11-11] MEDS: FUROSEMIDE 10 MG/ML 2 ML VIAL IV SCH ×2 (08:01→21:37)
[2018-11-11 08:10] LABS: HCT 44.7 % (34.0-46.0); HGB 13.9 gm/dL (11.4-16.0); MCH 28.5 pg (25.0-35.0); MCHC 31.1 g/dL (31.0-37.0); MCV 91.6 fL (80.0-100.0); Mean Platelet Volume 7.5; Platelet Count 253 k/uL (150-450); RBC 4.87 m/uL (3.80-5.40); RDW 13.8 % (11.5-15.5); WBC 12.2 k/uL (3.8-10.6)
[2018-11-11 08:24] LABS: ALT 30 U/L (9-52); AST 24 U/L (14-36); Alkaline Phosphatase 101 U/L (38-126); Anion Gap 13 mmol/L; Blood Urea Nitrogen 22 mg/dL (7-17); Carbon Dioxide 26 mmol/L (22-30); Chloride 100 mmol/L (98-107); Glucose 262 mg/dL (74-99); Potassium 4.5 mmol/L (3.5-5.1); Sodium 139 mmol/L (137-145); Total Bilirubin 0.5 mg/dL (0.2-1.3); Total Protein 7.3 g/dL (6.3-8.2)
[2018-11-11] MEDS: BUDESONIDE 1 MG/2 ML NEBU INHALATION SCH ×2 (08:28→19:33)
[2018-11-11] MEDS: FORMOTEROL FUMARATE 20 MCG/2 ML NEBU INHALATION SCH ×2 (08:28→19:33)
[2018-11-11] MEDS: IPRATROPIUM-ALBUTEROL 3 ML NEB INHALATION SCH ×4 (08:28→19:33)
[2018-11-11 12:15] LABS: Glucose,Whole Blood 271 mg/dL (75-99)
[2018-11-11] MEDS ORDERED: BENZONATATE 100 MG CAP PO PRN (12:15)
--- NOTE | 2018-11-11 12:21 | P.PN ---
Subjective Progress Note Date: 11/11/18 Patient seen and examined covering for Dr. Ortega. This is a 63-year-old female who presented to the emergency department complaining of cough and shortness of breath. The patient states she follows with Dr. Ortega in the office and has a history of COPD. She states that she is on home oxygen at 3-4 L nasal cannula [id number]. She also does have a history of obstructive sleep apnea but states she was intolerant of CPAP in the past and she just wears oxygen at night. The patient is complaining of continued cough which is nonproductive. She denies fevers and chills at home. She states that she did see her primary care physician and was started on steroids and antibiotics but she continued to feel short of breath. She states she does have a nebulizer at home which she uses frequently but it did not seem to help her symptoms. The patient is apparently a lifelong never smoker but states she was exposed to secondhand smoke. 2017: Patient seen and examined. Patient states she is still short of breath and coughing. She states that her cough is causing musculoskeletal pain. She states the morphine does help with that. She is on 2 L nasal cannula. The patient does have home oxygen. She has been afebrile and denies chills. Objective - Vital Signs Vital signs: Vital Signs Temp 97.7 F 11/11/18 06:02 Pulse 84 11/11/18 08:48 Resp 18 11/11/18 06:02 BP 123/68 11/11/18 06:02 Pulse Ox 95 11/11/18 08:29 Intake & Output 11/10/18 11/11/18 11/11/18 18:59 06:59 18:59 Output Total 0 0 Balance 0 0 Output: Stool 0 0 Other: Voiding Method Toilet Toilet Toilet Diaper Diaper # Voids 3 3 3 - Exam Gen.: Patient is alert and oriented 3, no acute distress, morbidly obese Cardiovascular: Regular rate and rhythm, S1/S2 Lungs: Bilateral crackles with hyperreactive cough Abdomen: Soft nontender nondistended positive bowel sounds Extremities: Trace edema - Labs CBC & Chem 7: 11/11/18 07:12 11/11/18 07:12 Labs: Abnormal Lab Results - Last 24 Hours (Table) 11/10/18 11/10/18 11/10/18 Range/Units 13:51 17:10 20:25 WBC (3.8-10.6) k/uL BUN (7-17) mg/dL Glucose (74-99) mg/dL POC Glucose (mg/dL) 247 H 249 H (75-99) mg/dL Plasma Lactic Acid Ramu 2.9 H* (0.7-2.0) mmol/L 11/11/18 11/11/18 11/11/18 Range/Units 07:12 07:12 07:25 WBC 12.2 H (3.8-10.6) k/uL BUN 22 H (7-17) mg/dL Glucose 262 H (74-99) mg/dL POC Glucose (mg/dL) 242 H (75-99) mg/dL Plasma Lactic Acid Ramu (0.7-2.0) mmol/L Microbiology - Last 24 Hours (Table) 11/09/18 18:30 Blood Culture - Preliminary Blood No Growth after 24 hours Assessment and Plan Assessment: Acute on chronic hypoxic respiratory failure Interstitial pulmonary edema versus pneumonitis Hyperreactive cough Acute exacerbation of asthma/COPD, unknown asthma type History of obstructive sleep apnea, noncompliant with CPAP Morbid obesity Leukocytosis, possibly secondary to steroids, although it is noted by primary team that this is chronic and patient follows with hematology Elevated lactic acid possibly secondary to hypoxia Diabetes mellitus type 2 O2 to maintain saturation greater than or equal to 90%. Patient currently is on 2 L nasal cannula with O2 saturation 91% Pulmicort Duo nebs Perforomist Singulair Solu-Medrol Antibiotics Diuresis - monitor urine output and renal function AM CXR reviewed - poor inspiratory effort, CM, mild interstitial edema Continue patient's home medications Sputum culture Incentive spirometry and pulmonary hygiene Encourage ambulation Add magosalon Patient seen and examined covering for Dr. Ortega.
--- NOTE | 2018-11-11 12:33 | P.PN ---
Subjective Progress Note Date: 11/11/18 This is a 63-year-old female patient of Dr. Giraldo and Dr. Ortega with past medical history of COPD, mild persistent asthma, chronic hypoxic respiratory failure on home O2 at 3 L nasal cannula, degenerative disc disease of the neck and back with extremity neuropathy, chronic leukocytosis monitored by Dr. Ballard. Patient had episode of atrial fibrillation after having colonoscopy and follow up with Dr. Ann. She has not required any anticoagulation. Regarding diabetes, patient states she takes the metformin as needed only. She states her last hemoglobin A1c was 6.8. Patient states that she has had difficulty breathing with a hacking cough with no sputum production. No chest pain that hurts when she takes a deep breath. She denies any fever, no leg edema. She has seen Dr. Giraldo and was started on steroids inhalers and antibiotic without improvement and patient came into [facility] emergency center for evaluation. She was afebrile, tachypneic, heart rate running in the 80s and 90s, pulse ox 94%. Blood pressure 134/78. Leukocytosis of 14.1, creatinine 0.83, blood sugar 239, lactic acid 2.6. Alkaline phosphatase 127, troponin negative, influenza testing negative. Chest x-ray shows reticular interstitial opacities throughout May relate to mild interstitial pneumonitis or mild interstitial pulmonary edema. ProBNP 163. Hemoglobin A1c 8.6. Patient was started on IV Solu-Medrol, IV fluids, nebulizer treatments antibiotics and consult was requested with Dr. Ortega and patient admitted to the [facility] floor. 11/11: Patient has been afebrile, heart rate running in 80s, pulse ox 95% on 2 L , blood pressure 123/68. White count is 12.2, hemoglobin 13.9, creatinine 0.66 , blood sugars up in the 240s. Chest x-ray has been obtained and report is pending. Echocardiogram reveals EF of 55-60%, moderate concentric left ventricular hypertrophy, mild tricuspid regurgitation. Dr. zapien suspect cor pulmonale from uncontrolled obstructive sleep apnea. Patient states she does not wear CPAP because she doesn't feel that it helps her and she only wears oxygen at night. Discussed in detail complications from obstructive sleep apnea. IV fluids will be discontinued. Solu-Medrol decreased to 40 mg every 8 hours Review of Systems All systems: negative Constitutional: Reports fatigue, Reports weakness, Denies chills, Denies fever, Denies poor appetite, Denies weight loss Eyes: denies blurred vision, denies pain Ears, nose, mouth and throat: Denies dysphagia, Denies headache, Denies sore throat, Denies vertigo Cardiovascular: Reports decreased exercise tolerance, Reports dyspnea on exertion, Denies chest pain, Denies edema, Denies leg edema, Denies lightheadedness, Denies shortness of breath, Denies syncope Respiratory: Reports congestion, Reports cough, Reports dyspnea, Reports home oxygen, Reports respiratory infections, Reports wheezing, Denies cough with sputum, Denies excessive sputum, Denies hemoptysis Gastrointestinal: Denies abdominal pain, Denies diarrhea, Denies loss of appetite, Denies melena, Denies nausea, Denies vomiting Genitourinary: Denies dysuria, Denies hematuria, Denies urgency, Denies urinary frequency Musculoskeletal: Denies frequent falls, Denies gait dysfunction, Denies muscle weakness, Denies myalgias Integumentary: Denies pruritus, Denies rash, Denies wounds Neurological: Denies aphasia, Denies change in mentation, Denies change in speech, Denies gait dysfunction, Denies numbness, Denies seizures, Denies weakness Psychiatric: Denies anxiety, Denies depression Endocrine: Denies fatigue, Denies weight change, reports abnormal blood sugars Objective - Vital Signs Vital signs: Vital Signs Temp 97.7 F 11/11/18 06:02 Pulse 80 11/11/18 08:29 Resp 18 11/11/18 06:02 BP 123/68 11/11/18 06:02 Pulse Ox 95 11/11/18 08:29 Intake & Output 11/10/18 11/11/18 11/11/18 18:59 06:59 18:59 Output Total 0 0 Balance 0 0 Output: Stool 0 0 Other: Voiding Method Toilet Toilet Toilet Diaper Diaper # Voids 3 3 - Exam Gen: This is a morbidly obese 63-year-old female. She is sitting up in a chair and is in no acute respiratory distress. HEENT: Head is atraumatic, normocephalic. Pupils equal, round. Sclerae is anicteric. NECK: Supple. No JVD. No lymphadenopathy. No thyromegaly. LUNGS: Lung sounds diminished with crackles in the right side. No intercostal retractions. HEART: Regular rate and rhythm. No murmur. ABDOMEN: Soft. Bowel sounds are present. No masses. No tenderness. EXTREMITIES: No pedal edema. No calf tenderness. NEUROLOGICAL: Patient is awake, alert and oriented x3. Cranial nerves 2 through 12 are grossly intact. - Labs CBC & Chem 7: 11/11/18 07:12 11/11/18 07:12 Labs: Abnormal Lab Results - Last 24 Hours (Table) 11/09/18 11/10/18 11/10/18 Range/Units 18:30 08:57 12:00 WBC (3.8-10.6) k/uL BUN (7-17) mg/dL Glucose (74-99) mg/dL POC Glucose (mg/dL) 229 H (75-99) mg/dL Hemoglobin A1c 8.6 H (4.0-6.0) % Plasma Lactic Acid Ramu 3.2 H* (0.7-2.0) mmol/L 11/10/18 11/10/18 11/10/18 Range/Units 13:51 17:10 20:25 WBC (3.8-10.6) k/uL BUN (7-17) mg/dL Glucose (74-99) mg/dL POC Glucose (mg/dL) 247 H 249 H (75-99) mg/dL Hemoglobin A1c (4.0-6.0) % Plasma Lactic Acid Ramu 2.9 H* (0.7-2.0) mmol/L 11/11/18 11/11/18 11/11/18 Range/Units 07:12 07:12 07:25 WBC 12.2 H (3.8-10.6) k/uL BUN 22 H (7-17) mg/dL Glucose 262 H (74-99) mg/dL POC Glucose (mg/dL) 242 H (75-99) mg/dL Hemoglobin A1c (4.0-6.0) % Plasma Lactic Acid Ramu (0.7-2.0) mmol/L Microbiology - Last 24 Hours (Table) 11/09/18 18:30 Blood Culture - Preliminary Blood No Growth after 24 hours Assessment and Plan Plan: 1. Acute on chronic hypoxic respiratory failure secondary to pneumonitis and COPD exacerbation, mild persistent asthma and sepsis that failed outpatient treatment. Consult with Dr. Ortega. Continue Solu-Medrol decreased to 40 mg every 8 hours, DuoNeb treatments 4 times daily and every 4 hours as needed, Pulmicort 1 mg twice daily, IV antibiotics with azithromycin and ceftriaxone. Echocardiogram as above 2. Mild persistent asthma. Continue as in #1. Patient states she is to start monthly injections with Dr. Ortega but has not followed up since last March. 3. Chronic hypoxic respiratory failure on home O2 at 3 L nasal cannula. 4. Chronic leukocytosis under the care of Dr. Ballard. 5. Chronic neck and back pain. Continue tramadol 50 mg every 6 hours as needed. 6. Diabetes mellitus type 2, uncontrolled with hyperglycemia. A1c 8.6. Metformin will be increased to twice daily 500 mg and start NovoLog scale with meals and at bedtime. 7. DVT prophylaxis. Lovenox subcu. 8. GI prophylaxis. Pepcid. 9. Generalized anxiety disorder. Continue alprazolam 0.5 mg daily as needed. 10. Obstructive sleep apnea noncompliant with CPAP with underlying chronic cor pulmonale and acute on chronic diastolic heart failure. Continue IV Lasix 20 mg every 12 hours.. Discharge plan: Most likely return home Impression and plan of care have been directed as dictated by the signing physician. Clarisse Jewell nurse practitioner acting as scribe for signing physician.
--- NOTE | 2018-11-11 14:46 | XR ---
EXAMINATION TYPE: XR chest 1V portable DATE OF EXAM: 11/11/2018 COMPARISON: 11/09/2018 INDICATION: Pneumonia TECHNIQUE: Frontal and lateral views of the chest are obtained. FINDINGS: The heart size is enlarged. The pulmonary vasculature is normal. Suspicious focal consolidation is not identified. Degree of inspiration is limited on this exam.. IMPRESSION: 1. Limited inspiration on this examination. Suspicious focal consolidation is not identified.
[2018-11-11] MEDS: methylPREDNISolone SOD SUCCI 40 MG/ML 1 ML VIAL IV SCH (16:59)
[2018-11-11 17:02] LABS: Glucose,Whole Blood 338 mg/dL (75-99)
[2018-11-11 20:57] LABS: Glucose,Whole Blood 264 mg/dL (75-99)
[2018-11-11] MEDS: MONTELUKAST 10 MG TAB PO SCH (21:37)
[2018-11-12] MEDS: methylPREDNISolone SOD SUCCI 40 MG/ML 1 ML VIAL IV SCH ×3 (00:23→16:25)
[2018-11-12 07:24] LABS: Glucose,Whole Blood 232 mg/dL (75-99)
[2018-11-12] MEDS: IPRATROPIUM-ALBUTEROL 3 ML NEB INHALATION SCH ×4 (07:36→19:37)
[2018-11-12] MEDS: FORMOTEROL FUMARATE 20 MCG/2 ML NEBU INHALATION SCH ×2 (07:36→19:37)
[2018-11-12] MEDS: BUDESONIDE 1 MG/2 ML NEBU INHALATION SCH ×2 (07:36→19:37)
[2018-11-12] MEDS: AZITHROMYCIN 500 MG TAB PO SCH (08:29)
[2018-11-12] MEDS: metFORMIN 500 MG TAB PO SCH ×2 (08:29→16:25)
[2018-11-12] MEDS: FAMOTIDINE 20 MG TAB PO SCH (08:29)
[2018-11-12] MEDS: FERROUS SULFATE 325 MG TAB PO SCH (08:29)
[2018-11-12] MEDS: FUROSEMIDE 10 MG/ML 2 ML VIAL IV SCH (08:29)
[2018-11-12] MEDS: INSULIN ASPART (NovoLOG) 100 UNIT/ML VIAL SQ SCH ×4 (08:29→21:25)
[2018-11-12] MEDS: ENOXAPARIN 40 MG/0.4 ML SYRINGE SQ SCH (08:30)
[2018-11-12] MEDS: MORPHINE SULFATE 4 MG/ML SYRINGE IVP PRN ×2 (08:44→16:26)
[2018-11-12 11:20] LABS: Glucose,Whole Blood 202 mg/dL (75-99)
--- NOTE | 2018-11-12 11:44 | P.PN ---
Subjective Progress Note Date: 11/12/18 This is a 63-year-old female patient of Dr. Giraldo and Dr. Ortega with past medical history of COPD, mild persistent asthma, chronic hypoxic respiratory failure on home O2 at 3 L nasal cannula, degenerative disc disease of the neck and back with extremity neuropathy, chronic leukocytosis monitored by Dr. Ballard. Patient had episode of atrial fibrillation after having colonoscopy and follow up with Dr. Ann. She has not required any anticoagulation. Regarding diabetes, patient states she takes the metformin as needed only. She states her last hemoglobin A1c was 6.8. Patient states that she has had difficulty breathing with a hacking cough with no sputum production. No chest pain that hurts when she takes a deep breath. She denies any fever, no leg edema. She has seen Dr. Giraldo and was started on steroids inhalers and antibiotic without improvement and patient came into [facility] emergency center for evaluation. She was afebrile, tachypneic, heart rate running in the 80s and 90s, pulse ox 94%. Blood pressure 134/78. Leukocytosis of 14.1, creatinine 0.83, blood sugar 239, lactic acid 2.6. Alkaline phosphatase 127, troponin negative, influenza testing negative. Chest x-ray shows reticular interstitial opacities throughout May relate to mild interstitial pneumonitis or mild interstitial pulmonary edema. ProBNP 163. Hemoglobin A1c 8.6. Patient was started on IV Solu-Medrol, IV fluids, nebulizer treatments antibiotics and consult was requested with Dr. Ortega and patient admitted to the [facility] floor. 11/11: Patient has been afebrile, heart rate running in 80s, pulse ox 95% on 2 L , blood pressure 123/68. White count is 12.2, hemoglobin 13.9, creatinine 0.66 , blood sugars up in the 240s. Chest x-ray has been obtained and report is pending. Echocardiogram reveals EF of 55-60%, moderate concentric left ventricular hypertrophy, mild tricuspid regurgitation. Dr. zapien suspect cor pulmonale from uncontrolled obstructive sleep apnea. Patient states she does not wear CPAP because she doesn't feel that it helps her and she only wears oxygen at night. Discussed in detail complications from obstructive sleep apnea. IV fluids will be discontinued. Solu-Medrol decreased to 40 mg every 8 hours 11/12: Patient is walking back from the bathroom this morning. Gait is steady, minimal shortness of breath with activity. Breathing status is improving slowly. She is currently on IV Solu-Medrol 40 mg every 8 hours which will be transitioned to oral prednisone in the morning. Lasix changed from IV to oral. Patient has been afebrile, heart rate running in the 80s, pulse ox 93% on 3 L nasal cannula. Blood pressure 103/67. Blood sugars are still running in the low 200s. Anticipate patient will be ready for discharge tomorrow. Review of Systems All systems: negative Constitutional: Reports fatigue, Reports weakness, Denies chills, Denies fever, Denies poor appetite, Denies weight loss Eyes: denies blurred vision, denies pain Ears, nose, mouth and throat: Denies dysphagia, Denies headache, Denies sore throat, Denies vertigo Cardiovascular: Reports decreased exercise tolerance, Reports dyspnea on exertion, Denies chest pain, Denies edema, Denies leg edema, Denies lightheadedness, Denies shortness of breath, Denies syncope Respiratory: Reports congestion, Reports cough, Reports dyspnea, Reports home oxygen, Reports respiratory infections, Reports wheezing, reports cough with sputum, Denies excessive sputum, Denies hemoptysis Gastrointestinal: Denies abdominal pain, Denies diarrhea, Denies loss of appetite, Denies melena, Denies nausea, Denies vomiting Genitourinary: Denies dysuria, Denies hematuria, Denies urgency, Denies urinary frequency Musculoskeletal: Denies frequent falls, Denies gait dysfunction, Denies muscle weakness, Denies myalgias Integumentary: Denies pruritus, Denies rash, Denies wounds Neurological: Denies aphasia, Denies change in mentation, Denies change in speech, Denies gait dysfunction, Denies numbness, Denies seizures, Denies weakness Psychiatric: Denies anxiety, Denies depression Endocrine: Denies fatigue, Denies weight change, reports abnormal blood sugars Objective - Vital Signs Vital signs: Vital Signs Temp 98.0 F 11/12/18 07:00 Pulse 83 11/12/18 07:58 Resp 20 11/12/18 07:00 BP 103/67 11/12/18 07:00 Pulse Ox 93 L 11/12/18 07:37 Intake & Output 02/10/19 02/11/19 02/11/19 18:59 06:59 18:59 Intake Total 200 Output Total 0 0 Balance 200 0 Intake: Oral 200 Output: Stool 0 0 Other: Voiding Method Toilet Toilet Diaper Diaper # Voids 3 2 - Exam Gen: This is a morbidly obese 63-year-old female. She is ambulating from the bathroom and appears to be in no acute distress. Gait is steady.. HEENT: Head is atraumatic, normocephalic. Pupils equal, round. Sclerae is anicteric. NECK: Supple. No JVD. No lymphadenopathy. No thyromegaly. LUNGS: Lung sounds diminished with crackles in the right side. No intercostal retractions. HEART: Regular rate and rhythm. No murmur. ABDOMEN: Soft. Bowel sounds are present. No masses. No tenderness. EXTREMITIES: No pedal edema. No calf tenderness. NEUROLOGICAL: Patient is awake, alert and oriented x3. Cranial nerves 2 through 12 are grossly intact. - Labs CBC & Chem 7: 11/11/18 07:12 11/11/18 07:12 Labs: Abnormal Lab Results - Last 24 Hours (Table) 11/11/18 11/11/18 11/11/18 Range/Units 12:10 16:59 20:56 POC Glucose (mg/dL) 271 H 338 H 264 H (75-99) mg/dL 11/12/18 Range/Units 07:20 POC Glucose (mg/dL) 232 H (75-99) mg/dL Microbiology - Last 24 Hours (Table) 11/09/18 18:30 Blood Culture - Preliminary Blood No Growth after 48 hours Assessment and Plan Plan: 1. Acute on chronic hypoxic respiratory failure secondary to pneumonitis and COPD exacerbation, mild persistent asthma and sepsis that failed outpatient treatment. Consult with Dr. Ortega. Continue Solu-Medrol will be transitioned to oral prednisone for the morning, DuoNeb treatments 4 times daily and every 4 hours as needed, Pulmicort 1 mg twice daily, IV antibiotics with azithromycin and ceftriaxone. Echocardiogram as above 2. Mild persistent asthma. Continue as in #1. Patient states she is to start monthly injections with Dr. Ortega but has not followed up since last March. 3. Chronic hypoxic respiratory failure on home O2 at 3 L nasal cannula. 4. Chronic leukocytosis under the care of Dr. Ballard. 5. Chronic neck and back pain. Continue tramadol 50 mg every 6 hours as needed. 6. Diabetes mellitus type 2, uncontrolled with hyperglycemia. A1c 8.6. Metformin will be increased to twice daily 500 mg and start NovoLog scale with meals and at bedtime. 7. DVT prophylaxis. Lovenox subcu. 8. GI prophylaxis. Pepcid. 9. Generalized anxiety disorder. Continue alprazolam 0.5 mg daily as needed. 10. Obstructive sleep apnea noncompliant with CPAP with underlying chronic cor pulmonale and acute on chronic diastolic heart failure. Continue IV Lasix 20 mg every 12 hours.. Discharge plan: Most likely return home Impression and plan of care have been directed as dictated by the signing physician. Clarisse Jewell nurse practitioner acting as scribe for signing physician.
--- NOTE | 2018-11-12 15:49 | P.PN ---
Subjective Progress Note Date: 11/12/18 Principal diagnosis: Acute on chronic hypoxic respiratory failure, acute COPD exacerbation, chronic persistent asthma with overlap syndrome, type 2 diabetes mellitus, morbid obesity, sleep disorder breathing and sleep apnea 11/12/2018, patient seen eval examined clinically doing slightly better cough congestion shortness of breath is improved but is still requiring breathing treatments and IV steroids severity is still there, able to get a sputum sample results are pending This is a 63-year-old female who presented to the emergency department complaining of cough and shortness of breath. The patient has a history of COPD. She states that she is on home oxygen at 3-4 L nasal cannula around-the- clock. She also does have a history of obstructive sleep apnea but states she was intolerant of CPAP in the past and she just wears oxygen at night. The patient is complaining of continued cough which is nonproductive. She denies fevers and chills at home. She states that she did see her primary care physician and was started on steroids and antibiotics but she continued to feel short of breath. She states she does have a nebulizer at home which she uses frequently but it did not seem to help her symptoms. The patient is apparently a lifelong never smoker but states she was exposed to secondhand smoke. Objective - Vital Signs Vital signs: Vital Signs Temp 97.7 F 11/12/18 14:51 Pulse 89 11/12/18 15:19 Resp 18 11/12/18 14:51 BP 106/64 11/12/18 14:51 Pulse Ox 93 L 11/12/18 14:51 Intake & Output 11/11/18 11/12/18 11/12/18 18:59 06:59 18:59 Intake Total 200 Output Total 0 0 Balance 200 0 Intake: Oral 200 Output: Stool 0 0 Other: Voiding Method Toilet Toilet Toilet Diaper Diaper Diaper # Voids 3 2 4 - Exam Gen.: Patient is alert and oriented 3, no acute distress, morbidly obese HEENT, oropharynx narrow in size no significant right heme edema is noted Neck, supple no JVD is present no bruits present Cardiovascular: Regular rate and rhythm, S1/S2 Lungs: Bilateral expiratory rhonchi Abdomen: Soft nontender nondistended positive bowel sounds Extremities: Trace edema Neurological exam within normal limits - Labs CBC & Chem 7: 11/11/18 07:12 11/11/18 07:12 Labs: Abnormal Lab Results - Last 24 Hours (Table) 11/11/18 11/11/18 11/12/18 Range/Units 16:59 20:56 07:20 POC Glucose (mg/dL) 338 H 264 H 232 H (75-99) mg/dL 11/12/18 Range/Units 11:18 POC Glucose (mg/dL) 202 H (75-99) mg/dL Microbiology - Last 24 Hours (Table) 11/09/18 18:30 Blood Culture - Preliminary Blood No Growth after 48 hours Assessment and Plan Assessment: Acute on chronic hypoxic respiratory failure Acute COPD exacerbation Fluid overload and CHF likely acute on chronic diastolic heart failure Sleep disorder breathing and sleep apnea Morbid obesity Type 2 diabetes mellitus History of chronic persistent asthma with overlap syndrome Plan: Continue IV steroids Breathing treatments Broad-spectrum antibiotics Gentle diuresis Labs reviewed medications reviewed we'll follow clinical course closely Time with Patient: Greater than 30
[2018-11-12] MEDS: FUROSEMIDE 20 MG TAB PO SCH (16:25)
[2018-11-12 17:09] LABS: Glucose,Whole Blood 200 mg/dL (75-99)
[2018-11-12 20:47] LABS: Glucose,Whole Blood 249 mg/dL (75-99)
[2018-11-12] MEDS: MONTELUKAST 10 MG TAB PO SCH (21:19)
[2018-11-13 07:40] LABS: Glucose,Whole Blood 181 mg/dL (75-99)
[2018-11-13] MEDS: IPRATROPIUM-ALBUTEROL 3 ML NEB INHALATION SCH ×4 (07:50→19:54)
[2018-11-13] MEDS: BUDESONIDE 1 MG/2 ML NEBU INHALATION SCH ×2 (07:50→19:54)
[2018-11-13] MEDS: FORMOTEROL FUMARATE 20 MCG/2 ML NEBU INHALATION SCH ×2 (07:50→19:54)
[2018-11-13] MEDS: FAMOTIDINE 20 MG TAB PO SCH (08:07)
[2018-11-13] MEDS: predniSONE 20 MG TAB PO SCH (08:07)
[2018-11-13] MEDS: FERROUS SULFATE 325 MG TAB PO SCH (08:07)
[2018-11-13] MEDS: metFORMIN 500 MG TAB PO SCH ×2 (08:07→17:14)
[2018-11-13] MEDS: FUROSEMIDE 20 MG TAB PO SCH ×2 (08:07→17:14)
[2018-11-13] MEDS: MORPHINE SULFATE 4 MG/ML SYRINGE IVP PRN ×2 (08:08→20:54)
[2018-11-13] MEDS: ENOXAPARIN 40 MG/0.4 ML SYRINGE SQ SCH (08:08)
[2018-11-13] MEDS: AZITHROMYCIN 500 MG TAB PO SCH (08:08)
[2018-11-13] MEDS: INSULIN ASPART (NovoLOG) 100 UNIT/ML VIAL SQ SCH ×4 (08:08→20:50)
[2018-11-13 09:53] LABS: HCT 44.5 % (34.0-46.0); HGB 14.1 gm/dL (11.4-16.0); MCH 28.9 pg (25.0-35.0); MCHC 31.7 g/dL (31.0-37.0); MCV 91.2 fL (80.0-100.0); Mean Platelet Volume 7.7; Platelet Count 222 k/uL (150-450); RBC 4.88 m/uL (3.80-5.40); RDW 13.7 % (11.5-15.5); WBC 13.5 k/uL (3.8-10.6)
[2018-11-13 10:13] LABS: ALT 35 U/L (9-52); AST 26 U/L (14-36); Albumin 3.6 g/dL (3.5-5.0); Alkaline Phosphatase 120 U/L (38-126); Anion Gap 10 mmol/L; Blood Urea Nitrogen 23 mg/dL (7-17); Calcium 8.6 mg/dL (8.4-10.2); Carbon Dioxide 27 mmol/L (22-30); Chloride 100 mmol/L (98-107); Glucose 228 mg/dL (74-99); Potassium 4.5 mmol/L (3.5-5.1); Sodium 137 mmol/L (137-145); Total Bilirubin 0.6 mg/dL (0.2-1.3); Total Protein 6.8 g/dL (6.3-8.2)
[2018-11-13 11:31] LABS: Glucose,Whole Blood 191 mg/dL (75-99)
--- NOTE | 2018-11-13 15:00 | P.DS ---
Providers Date of admission: 11/09/18 19:44 Expected date of discharge: 11/13/18 Attending physician: Lorelei Garcia Consults: 11/09/18 19:44 Consult Physician Routine Consulting Provider: Fazal Ortega Consult Reason/Comments: COPD, pneumonia Do you want consulting provider notified?: Yes Primary care physician: Pinky [facility] Course: This is a 63-year-old female patient of Dr. Giraldo and Dr. Ortega with past medical history of COPD, mild persistent asthma, chronic hypoxic respiratory failure on home O2 at 3 L nasal cannula, degenerative disc disease of the neck and back with extremity neuropathy, chronic leukocytosis monitored by Dr. Ballard. Patient had episode of atrial fibrillation after having colonoscopy and follow up with Dr. Ann. She has not required any anticoagulation. Regarding diabetes, patient states she takes the metformin as needed only. She states her last hemoglobin A1c was 6.8. Patient states that she has had difficulty breathing with a hacking cough with no sputum production. No chest pain that hurts when she takes a deep breath. She denies any fever, no leg edema. She has seen Dr. Giraldo and was started on steroids inhalers and antibiotic without improvement and patient came into [facility] emergency center for evaluation. She was afebrile, tachypneic, heart rate running in the 80s and 90s, pulse ox 94%. Blood pressure 134/78. Leukocytosis of 14.1, creatinine 0.83, blood sugar 239, lactic acid 2.6. Alkaline phosphatase 127, troponin negative, influenza testing negative. Chest x-ray shows reticular interstitial opacities throughout May relate to mild interstitial pneumonitis or mild interstitial pulmonary edema. ProBNP 163. Hemoglobin A1c 8.6. Patient was started on IV Solu-Medrol, IV fluids, nebulizer treatments antibiotics and consult was requested with Dr. Ortega and patient admitted [facility] floor. 11/11: Patient has been afebrile, heart rate running in 80s, pulse ox 95% on 2 L , blood pressure 123/68. White count is 12.2, hemoglobin 13.9, creatinine 0.66 , blood sugars up in the 240s. Chest x-ray has been obtained and report is pending. Echocardiogram reveals EF of 55-60%, moderate concentric left ventricular hypertrophy, mild tricuspid regurgitation. Dr. turn suspect cor pulmonale from uncontrolled obstructive sleep apnea. Patient states she does not wear CPAP because she doesn't feel that it helps her and she only wears oxygen at night. Discussed in detail complications from obstructive sleep apnea. IV fluids will be discontinued. Solu-Medrol decreased to 40 mg every 8 hours 11/12: Patient is walking back from the bathroom this morning. Gait is steady, minimal shortness of breath with activity. Breathing status is improving slowly. She is currently on IV Solu-Medrol 40 mg every 8 hours which will be transitioned to oral prednisone in the morning. Lasix changed from IV to oral. Patient has been afebrile, heart rate running in the 80s, pulse ox 93% on 3 L nasal cannula. Blood pressure 103/67. Blood sugars are still running in the low 200s. Anticipate patient will be ready for discharge tomorrow. 11/13: Patient does not have a nebulizer machine at home. Apparently she lost it recently and is unable to have this replaced until July of this year. Patient will be provided with prescription for Symbicort and multiple new medications provided. Patient is stating that she still has quite a bit of cough and pain on the lateral sides of her chest from coughing. She has not had a bowel movement. Recommend patient take stool softener when she gets home today. Dr. Ortega is following and patient will be discharged home today once cleared by pulmonary medicine. Discharge diagnoses: 1. Acute on chronic hypoxic respiratory failure secondary to pneumonitis and COPD exacerbation, mild persistent asthma and sepsis that failed outpatient treatment. 2. Mild persistent asthma. 3. Chronic hypoxic respiratory failure on home O2 at 3 L nasal cannula. 4. Chronic leukocytosis under the care of Dr. Ballard. 5. Chronic neck and back pain. 6. Diabetes mellitus type 2, uncontrolled with hyperglycemia. A1c 8.6. 7. Generalized anxiety disorder. 8. Obstructive sleep apnea noncompliant with CPAP with underlying chronic cor pulmonale and acute on chronic diastolic heart failure. Discharge plan: home Impression and plan of care have been directed as dictated by the signing physician. Clarisse Jewell nurse practitioner acting as scribe for signing physician. Patient Condition at Discharge: Good Plan - Discharge Summary Discharge Rx Participant: No New Discharge Prescriptions: New Azithromycin [Zithromax] 500 mg PO DAILY #3 tab Benzonatate [Tessalon Perles] 100 mg PO TID PRN #15 cap PRN Reason: Cough Budesonide/Formoterol Fumarate [Symbicort 160-4.5 Mcg Inhaler] 2 puff INHALATION BID #1 inhaler Famotidine [Pepcid] 20 mg PO DAILY #30 tab Furosemide [Lasix] 20 mg PO BID@0900,1600 #60 tab Montelukast [Singulair] 10 mg PO HS #30 tab Potassium Chloride ER [K-Dur 10] 10 meq PO DAILY #30 tab predniSONE 0 mg PO DIRECTED #40 tab Continue traMADol HCL [Ultram] 50 mg PO Q6H PRN PRN Reason: Pain Ibuprofen [Motrin] 600 mg PO Q8HR PRN PRN Reason: Pain Ferrous Sulfate [Feosol] 325 mg PO DAILY ALPRAZolam [Xanax] 0.5 mg PO DAILY PRN PRN Reason: Anxiety Vitamin D3(Unknown Dose) 1 tab PO DAILY Meclizine [Antivert] 25 mg PO TID PRN PRN Reason: dizziness Changed metFORMIN HCL [Glucophage] 500 mg PO BID #60 tab Discontinued methylPREDNISolone Dose Pack [Medrol Dose Pack] See Taper PO DIRECTED Azithromycin [Zithromax Z-pack] See Taper PO DIRECTED Discharge Medication List ALPRAZolam [Xanax] 0.5 mg PO DAILY PRN 11/09/18 [History] Ferrous Sulfate [Feosol] 325 mg PO DAILY 11/09/18 [History] Ibuprofen [Motrin] 600 mg PO Q8HR PRN 11/09/18 [History] Meclizine [Antivert] 25 mg PO TID PRN 11/09/18 [History] Vitamin D3(Unknown Dose) 1 tab PO DAILY 11/09/18 [History] traMADol HCL [Ultram] 50 mg PO Q6H PRN 11/09/18 [History] Azithromycin [Zithromax] 500 mg PO DAILY #3 tab 11/13/18 [Rx] Benzonatate [Tessalon Perles] 100 mg PO TID PRN #15 cap 11/13/18 [Rx] Budesonide/Formoterol Fumarate [Symbicort 160-4.5 Mcg Inhaler] 2 puff INHALATION BID #1 inhaler 11/13/18 [Rx] Famotidine [Pepcid] 20 mg PO DAILY #30 tab 11/13/18 [Rx] Furosemide [Lasix] 20 mg PO BID@0900,1600 #60 tab 11/13/18 [Rx] Montelukast [Singulair] 10 mg PO HS #30 tab 11/13/18 [Rx] Potassium Chloride ER [K-Dur 10] 10 meq PO DAILY #30 tab 11/13/18 [Rx] metFORMIN HCL [Glucophage] 500 mg PO BID #60 tab 11/13/18 [Rx] predniSONE 0 mg PO DIRECTED #40 tab 11/13/18 [Rx] Follow up Appointment(s)/Referral(s): Pinky Giraldo MD [Primary Care Provider] - 1 Week Fazal Ortega MD [STAFF PHYSICIAN] - 1 Week Activity/Diet/Wound Care/Special Instructions: [facility] supplied your Nebulizer, please call [facility] to report your lost Nebulizer at [phone]. Medicare will not pay for a new one until 2018.
[2018-11-13 17:19] LABS: Glucose,Whole Blood 182 mg/dL (75-99)
--- NOTE | 2018-11-13 17:28 | P.PN ---
Subjective Progress Note Date: 11/13/18 Principal diagnosis: Acute on chronic hypoxic respiratory failure, acute COPD exacerbation, chronic persistent asthma with overlap syndrome, type 2 diabetes mellitus, morbid obesity, sleep disorder breathing and sleep apnea 11/13/2018, patient seen eval examined during examination patient have episode of coughing and wheezing, patient does have more symptoms at nighttime for now would recommend to continue steroids breathing treatment antibiotics hoping patient should be ready next 24 hours for discharge 11/12/2018, patient seen eval examined clinically doing slightly better cough congestion shortness of breath is improved but is still requiring breathing treatments and IV steroids severity is still there, able to get a sputum sample results are pending This is a 63-year-old female who presented to the emergency department complaining of cough and shortness of breath. The patient has a history of COPD. She states that she is on home oxygen at 3-4 L nasal cannula around-the- clock. She also does have a history of obstructive sleep apnea but states she was intolerant of CPAP in the past and she just wears oxygen at night. The patient is complaining of continued cough which is nonproductive. She denies fevers and chills at home. She states that she did see her primary care physician and was started on steroids and antibiotics but she continued to feel short of breath. She states she does have a nebulizer at home which she uses frequently but it did not seem to help her symptoms. The patient is apparently a lifelong never smoker but states she was exposed to secondhand smoke. Objective - Vital Signs Vital signs: Vital Signs Temp 96.7 F L 11/13/18 14:23 Pulse 65 11/13/18 15:52 Resp 18 11/13/18 14:23 BP 107/55 11/13/18 14:23 Pulse Ox 95 11/13/18 15:44 Intake & Output 11/12/18 11/13/18 11/13/18 18:59 06:59 18:59 Intake Total 500 Balance 500 Intake: Oral 500 Other: Voiding Method Toilet Toilet Toilet Diaper Diaper Diaper # Voids 4 1 4 - Exam Gen.: Patient is alert and oriented 3, no acute distress, morbidly obese HEENT, oropharynx narrow in size no significant right heme edema is noted Neck, supple no JVD is present no bruits present Cardiovascular: Regular rate and rhythm, S1/S2 Lungs: Bilateral expiratory rhonchi Abdomen: Soft nontender nondistended positive bowel sounds Extremities: Trace edema Neurological exam within normal limits - Labs CBC & Chem 7: 11/13/18 09:35 11/13/18 09:35 Labs: Abnormal Lab Results - Last 24 Hours (Table) 11/12/18 11/13/18 11/13/18 Range/Units 20:44 07:37 09:35 WBC 13.5 H (3.8-10.6) k/uL BUN (7-17) mg/dL Glucose (74-99) mg/dL POC Glucose (mg/dL) 249 H 181 H (75-99) mg/dL 11/13/18 11/13/18 11/13/18 Range/Units 09:35 11:29 17:16 WBC (3.8-10.6) k/uL BUN 23 H (7-17) mg/dL Glucose 228 H (74-99) mg/dL POC Glucose (mg/dL) 191 H 182 H (75-99) mg/dL Microbiology - Last 24 Hours (Table) 11/12/18 07:40 Gram Stain - Preliminary Sputum Sputum Culture - Preliminary Jeannette albicans 11/09/18 18:30 Blood Culture - Preliminary Blood No Growth after 72 hours Assessment and Plan Assessment: Acute on chronic hypoxic respiratory failure Acute COPD exacerbation Fluid overload and CHF likely acute on chronic diastolic heart failure Sleep disorder breathing and sleep apnea Morbid obesity Type 2 diabetes mellitus History of chronic persistent asthma with overlap syndrome Plan: Continue IV steroids, can be switched to oral agree with discharge planning next 24 hours Breathing treatments Broad-spectrum antibiotics Gentle diuresis Labs reviewed medications reviewed we'll follow clinical course closely Time with Patient: Greater than 30
[2018-11-13] MEDS: MONTELUKAST 10 MG TAB PO SCH (20:30)
[2018-11-13 20:41] LABS: Glucose,Whole Blood 200 mg/dL (75-99)
[2018-11-13 21:53] VITALS: TEMP 97.8
[2018-11-14] MEDS: BUDESONIDE 1 MG/2 ML NEBU INHALATION SCH (07:16)
[2018-11-14] MEDS: FORMOTEROL FUMARATE 20 MCG/2 ML NEBU INHALATION SCH (07:17)
[2018-11-14] MEDS: IPRATROPIUM-ALBUTEROL 3 ML NEB INHALATION SCH ×2 (07:17→11:37)
[2018-11-14 07:24] LABS: Glucose,Whole Blood 127 mg/dL (75-99)
[2018-11-14] MEDS: INSULIN ASPART (NovoLOG) 100 UNIT/ML VIAL SQ SCH ×2 (07:33→13:07)
[2018-11-14 07:58] VITALS: BP 111/68; RESP 16
[2018-11-14 09:07] VITALS: BMI 44.6
[2018-11-14] MEDS: predniSONE 20 MG TAB PO SCH (09:16)
[2018-11-14] MEDS: AZITHROMYCIN 500 MG TAB PO SCH (09:16)
[2018-11-14] MEDS: FERROUS SULFATE 325 MG TAB PO SCH (09:16)
[2018-11-14] MEDS: FUROSEMIDE 20 MG TAB PO SCH (09:16)
[2018-11-14] MEDS: FAMOTIDINE 20 MG TAB PO SCH (09:16)
[2018-11-14] MEDS: metFORMIN 500 MG TAB PO SCH (09:16)
[2018-11-14] MEDS: ENOXAPARIN 40 MG/0.4 ML SYRINGE SQ SCH (09:17)
[2018-11-14 11:40] VITALS: PULSE 68
[2018-11-14 12:09] LABS: Glucose,Whole Blood 213 mg/dL (75-99)
--- NOTE | 2018-11-16 08:26 | P.PN ---
Subjective Progress Note Date: 11/14/18 Principal diagnosis: Acute on chronic hypoxic respiratory failure, acute COPD exacerbation, chronic persistent asthma with overlap syndrome, type 2 diabetes mellitus, morbid obesity, sleep disorder breathing and sleep apnea 11/14/2018, patient seen and evaluated examined during the rounds clinically has been doing better in terms of cough congestion shortness with care plan discussed with the primary service agree with discharge planning with follow-up on outpatient basis 11/13/2018, patient seen eval examined during examination patient have episode of coughing and wheezing, patient does have more symptoms at nighttime for now would recommend to continue steroids breathing treatment antibiotics hoping patient should be ready next 24 hours for discharge 11/12/2018, patient seen eval examined clinically doing slightly better cough congestion shortness of breath is improved but is still requiring breathing treatments and IV steroids severity is still there, able to get a sputum sample results are pending This is a 63-year-old female who presented to the emergency department complaining of cough and shortness of breath. The patient has a history of COPD. She states that she is on home oxygen at 3-4 L nasal cannula around-the- clock. She also does have a history of obstructive sleep apnea but states she was intolerant of CPAP in the past and she just wears oxygen at night. The patient is complaining of continued cough which is nonproductive. She denies fevers and chills at home. She states that she did see her primary care physician and was started on steroids and antibiotics but she continued to feel short of breath. She states she does have a nebulizer at home which she uses frequently but it did not seem to help her symptoms. The patient is apparently a lifelong never smoker but states she was exposed to secondhand smoke. Objective - Vital Signs Vital signs: Vital Signs Temp 97.8 F 11/14/18 07:10 Pulse 68 11/14/18 11:46 Resp 16 11/14/18 07:10 BP 111/68 11/14/18 07:10 Pulse Ox 92 L 11/14/18 07:10 - Exam Gen.: Patient is alert and oriented 3, no acute distress, morbidly obese HEENT, oropharynx narrow in size no significant right heme edema is noted Neck, supple no JVD is present no bruits present Cardiovascular: Regular rate and rhythm, S1/S2 Lungs: Bilateral expiratory rhonchi Abdomen: Soft nontender nondistended positive bowel sounds Extremities: Trace edema Neurological exam within normal limits - Labs CBC & Chem 7: 11/13/18 09:35 11/13/18 09:35 Labs: Microbiology - Last 24 Hours (Table) 11/09/18 18:30 Blood Culture - Final Blood No Growth after 144 hours Assessment and Plan Assessment: Acute on chronic hypoxic respiratory failure Acute COPD exacerbation Fluid overload and CHF likely acute on chronic diastolic heart failure Sleep disorder breathing and sleep apnea Morbid obesity Type 2 diabetes mellitus History of chronic persistent asthma with overlap syndrome Plan: Continue IV steroids, can be switched to oral agree with discharge planning later on today Breathing treatments Broad-spectrum antibiotics Gentle diuresis Labs reviewed medications reviewed we'll follow clinical course closely Time with Patient: Greater than 30
== END 2018-11-14 15:01 | disposition home or self-care (01) | DRG 871 ==
LOC: EC 17:12 → 4MS4W 19:44
PROVIDERS: ADMIT Family Medicine; ATTEND Family Medicine
DX: A41.9 Sepsis, unspecified organism (principal); J18.9 Pneumonia, unspecified organism; J96.21 Acute and chronic respiratory failure with hypoxia; I50.33 Acute on chronic diastolic (congestive) heart failure; J44.0 Chronic obstructive pulmonary disease with (acute) lower respiratory infection; J44.1 Chronic obstructive pulmonary disease with (acute) exacerbation; Z68.41 Body mass index [BMI] 40.0-44.9, adult; J45.31 Mild persistent asthma with (acute) exacerbation; E66.01 Morbid (severe) obesity due to excess calories; I07.1 Rheumatic tricuspid insufficiency; I27.81 Cor pulmonale (chronic); G47.33 Obstructive sleep apnea (adult) (pediatric); H81.09 Meniere's disease, unspecified ear; I48.91 Unspecified atrial fibrillation; J84.89 Other specified interstitial pulmonary diseases; E11.65 Type 2 diabetes mellitus with hyperglycemia; F41.1 Generalized anxiety disorder; M50.30 Other cervical disc degeneration, unspecified cervical region; M54.9 Dorsalgia, unspecified; G89.29 Other chronic pain; Z99.81 Dependence on supplemental oxygen; Z91.19 Patient's noncompliance with other medical treatment and regimen; Z86.010 Personal history of colon polyps; Z82.49 Family history of ischemic heart disease and other diseases of the circulatory system; Z79.84 Long term (current) use of oral hypoglycemic drugs; Z79.51 Long term (current) use of inhaled steroids; Z79.899 Other long term (current) drug therapy; Z88.2 Allergy status to sulfonamides; Z88.8 Allergy status to other drugs, medicaments and biological substances; Z91.041 Radiographic dye allergy status; Z91.018 Allergy to other foods; Z91.010 Allergy to peanuts; Z79.1 Long term (current) use of non-steroidal anti-inflammatories (NSAID); Z80.1 Family history of malignant neoplasm of trachea, bronchus and lung; Z80.8 Family history of malignant neoplasm of other organs or systems; Z82.0 Family history of epilepsy and other diseases of the nervous system; Z82.3 Family history of stroke; Z82.5 Family history of asthma and other chronic lower respiratory diseases; Z90.710 Acquired absence of both cervix and uterus
CPT/HCPCS: 36415; 71045; 71046; 80053; 82550; 82553; 83036; 83605; 83735; 83880; 84484; 85025; 85027; 85610; 85730; 87040; 87070; 87205; 87502; 93005; 93306; 94640; 94760; 96365; 96375; 99285

== ENCOUNTER → 2019-06-25 | Outpatient (CLI) | payer MEDICARE, OTHER ==
--- NOTE | 2019-06-27 10:32 | CT ---
EXAMINATION TYPE: CT chest wo con DATE OF EXAM: 06/25/2019 COMPARISON: 12/17/2018 from [facility] obtained 06/27/2019 for comparison HISTORY: Pulmonary nodule CT DLP: 568.30 mGycm, Automated exposure control for dose reduction was used. CONTRAST: Performed injected with 0 mL of Isovue 300. TECHNIQUE: Axial images were obtained at 5 mm thick sections. Reconstructed images are reviewed on [employer] computer in the coronal plane. FINDINGS: Portion of the thyroid visualized is normal. There is a 0.5 cm nodule within the periphery of the right upper lobe. Series 4 image 15. There is a 0.5 cm nodule in the periphery of the right mid lung. Series 4 image 24. There is a right middle lob e nodule measuring 0.5 cm. Series 4 image 25. These were present previously and are stable. A few new nodules are identified. A faint nodule is in the right peripheral midlung and 0.5 cm. Serie s 4 image 16. 0.3 cm nodules in the periphery of the right midlung. Series 4 image 21. Residual jeremiah nt nodule in the periphery of the right upper lobe measuring 0.5 cm. Series 4 image 11. There is a ve ry faint nodule measuring 0.4 cm in the periphery of the right upper lobe. Series 4 image 13 No enlarged mediastinal or hilar adenopathy is evident. The ascending aorta diameter at the level o f the main pulmonary artery is 3.5 cm. The main pulmonary artery diameter at the bifurcation is 3.[address] sections are obtained through the upper abdomen. Calcifications at the tail of the pancrea s. Abdomen is otherwise essentially unremarkable. IMPRESSIONS: 1. Scattered stable right lung nodules from prior exam. 2. There are new small right-sided nodules developing from comparison.
== END | disposition home or self-care (01) ==
LOC: RADCTMAIN 11:15
PROVIDERS: ATTEND Internal Medicine Sleep Medicine
DX: R91.8 Other nonspecific abnormal finding of lung field (principal)
CPT/HCPCS: 71250

== ENCOUNTER 2019-07-10 08:43 | Day surgery (SDC) | payer MEDICARE, OTHER ==
--- NOTE | 2019-07-10 07:56 | P.GSHP ---
History of Present Illness H&P Date: 07/10/19 Chief Complaint: Screening, history of polyps Patient on our service. Last colonoscopy 2012. Patient was found to have a small ascending colon polyp however the patient's prep was poor and short-term follow-up was advised. Polyp was an adenoma. Recently saw oncology for leukocytosis. No malignancy identified at this time. They recommended that the patient proceed with screening colonoscopy since she is overdue. Family history of colon cancer in her father. Uncle also had colon cancer. Past Medical History Past Medical History: Atrial Fibrillation, Asthma, Chest Pain / Angina, COPD, Diabetes Mellitus, Memory Impairment, Osteoarthritis (OA), Pneumonia, Sleep Apnea/CPAP/BIPAP Additional Past Medical History / Comment(s): STATES SHE HAS BEEN TOLD SHE HAS NODULE ON HER RIGHT LUNG, FOLLOW-UP WITH DR. SHAZIA DEAL. LEUKOCYTOSIS (CONTINUOUS FOLLOW-UP WITH DR. ONEILL). 02 3 liter n/c at hs and prn. Short term memory LOSS. INTERMITTENT NUMBNESS MORALES arms. MENIERE'S SYNDROME. 2009 INJURY TO LEFT FOOT WHICH NEVER HAD SURGERY, DID NOT HEAL WELL AND IS PAINFUL. BACK PAIN DEGENERATIVE DISC DISEASE TO NECK AND BACK. ATRIAL FIBRILLATION POST ANESTHESIA, A SPECIFIC MED HAS NOT BEEN IDENTIFIED. History of Any Multi-Drug Resistant Organisms: None Reported Past Surgical History: Cholecystectomy, Heart Catheterization, Hysterectomy Additional Past Surgical History / Comment(s): "repair of membrane OF EAR" had surgery at [place] [facility] many years ago. colonosocpy/polypectomy Past Anesthesia/Blood Transfusion Reactions: No Reported Reaction, Previous Problems w/ Anesthesia Additional Past Anesthesia/Blood Transfusion Reaction / Comment(s): PATIENT STATES SHE HAS HAD BOUTS OF ATRIAL FIB AFTER ANESTHESIA, EVEN AFTER COLONOSCOPIES. Past Psychological History: No Psychological Hx Reported Additional Psychological History / Comment(s): lives alone in [facility]. does'nt drive but son takes her to [email or web address]. has home 02 3 liters n/c at hs and prn, cane , walker if needed. Smoking Status: Never smoker Past Alcohol Use History: None Reported Past Drug Use History: None Reported - Past Family History Mother Family Medical History: Cancer Additional Family Medical History / Comment(s): Mother at age 84 from COPD and lung cancer. Father Additional Family Medical History / Comment(s): Father at age 82 from pneumonia but also had history of COPD, lung tumor, Parkinson's. Brother(s) Family Medical History: No Reported History Additional Family Medical History / Comment(s): . Sister(s) Family Medical History: Cancer Additional Family Medical History / Comment(s): THYROID Medications and Allergies Home Medications Medication Instructions Recorded Confirmed Type ALPRAZolam [Xanax] 0.5 mg PO DAILY PRN 11/09/18 07/09/19 History Ferrous Sulfate [Feosol] 325 mg PO DAILY 11/09/18 07/09/19 History Ibuprofen [Motrin] 600 mg PO Q8HR PRN 11/09/18 07/09/19 History Meclizine [Antivert] 25 mg PO TID PRN 11/09/18 07/09/19 History traMADol HCL [Ultram] 50 mg PO Q6H PRN 11/09/18 07/09/19 History Montelukast [Singulair] 10 mg PO HS #30 tab 11/13/18 07/09/19 Rx Budesonide/Formoterol Fumarate 2 puff INHALATION BID PRN 07/09/19 07/09/19 History [Symbicort 160-4.5 Mcg Inhaler] Cholecalciferol (Vitamin D3) 1 tab PO DAILY 07/09/19 07/09/19 History [Vitamin D3] Famotidine [Pepcid] 20 mg PO DAILY PRN 07/09/19 07/09/19 History metFORMIN HCL [Glucophage] 500 mg PO TID BETWEEN MEALS 07/09/19 07/09/19 History Allergies Allergy/AdvReac Type Severity Reaction Status Date / Time Iodinated Contrast Media Allergy "THROAT Verified 11/09/18 18:58 [Iodinated Contrast Media - CLOSES UP" IV Dye] ketorolac tromethamine Allergy Swelling Verified 11/09/18 18:58 [From Toradol] peanut Allergy Rash/Hives Verified 11/10/18 00:09 Sulfa (Sulfonamide Allergy Swelling Verified 11/09/18 18:58 Antibiotics) tromethamine Allergy Swelling Verified 11/09/18 18:58 [email or web address] Allergy Rash/Hives Uncoded 11/12/18 11:07 Surgical - Exam Physical exam: General: Well-developed, well-nourished HEENT: Normocephalic, sclerae nonicteric Abdomen: Nontender, nondistended Extremities: No edema Neuro: Alert and oriented Assessment and Plan (1) Colon cancer screening Narrative/Plan: Will proceed with colonoscopy at this time Status: Acute Code(s): Z12.11 - ENCOUNTER FOR SCREENING FOR MALIGNANT NEOPLASM OF COLON SNOMED Code(s): 949869315
[~2019-07-10 08:43] MED LIST: LACTATED RINGERS 1,000 ML IV SCH; LIDOCAINE 1% 20 ML VIAL (10MG/ML) FOR IV START INTRADERMA PRN
[2019-07-10 09:22] LABS: Glucose,Whole Blood 154 mg/dL (75-99)
[2019-07-10 09:24] VITALS: TEMP 98.1
[2019-07-10] MEDS ORDERED: LIDOCAINE 1% INJ 10MG/ML (20 ML MDV) ONE (09:29)
[2019-07-10] MEDS ORDERED: PROPOFOL 10 MG/ML 20 ML VIAL IV ONE (09:29)
--- NOTE | 2019-07-10 10:04 | P.PCN ---
Date of Procedure: 07/10/19 Procedure(s) Performed: PREOPERATIVE DIAGNOSIS: Colon cancer screening, history of polyps, family history colon cancer POSTOPERATIVE DIAGNOSIS: Cecal polyp, ascending colon polyp, transverse colon polyp, descending colon polyp PROCEDURE: Colonoscopy with snare polypectomy ANESTHESIA: MAC SURGEON: Vitaly Nava M.D. SPECIMENS: Polyps ENDOSCOPIC PROCEDURE: The patient was placed on the endoscopy table in the left decubitus position. The Olympus colonoscope was inserted into the anus and passed under direct visualization to the base of the cecum. The appendiceal orifice was visualized. From that point the scope was slowly withdrawn inspecting all surfaces carefully. Just adjacent to the ileocecal valve there is noted to be a 1cm polyp that was removed in one piece using the snare with cautery technique. In order to retrieve this this was cut into several smaller pieces using the snare. A small polyp was seen in the ascending colon removed in a similar fashion. A small polyp in the transverse colon was identified and removed in a similar fashion. A small polyp was identified in the descending colon and removed in a similar fashion. The remainder of the descending sigmoid and rectum was normal. There was mild scattered diverticulosis. Digital rectal examination was normal. The patient was taken to the recovery room in stable condition per anesthesia guidelines. RECOMMENDATIONS: Await biopsy results. Recommend follow-up colonoscopy 3-5 years.
[2019-07-10 10:09] VITALS: RESP 16
[2019-07-10 10:20] VITALS: BP 119/70; PULSE 82
== END 2019-07-10 10:52 | disposition home or self-care (01) ==
LOC: ORWHC2ENDO 08:43
PROVIDERS: ATTEND Surgery
DX: Z12.11 Encounter for screening for malignant neoplasm of colon (principal); D12.0 Benign neoplasm of cecum; D12.2 Benign neoplasm of ascending colon; D12.3 Benign neoplasm of transverse colon; D12.4 Benign neoplasm of descending colon; K57.30 Diverticulosis of large intestine without perforation or abscess without bleeding; Z80.0 Family history of malignant neoplasm of digestive organs; R20.0 Anesthesia of skin; J44.9 Chronic obstructive pulmonary disease, unspecified; E11.9 Type 2 diabetes mellitus without complications; R41.3 Other amnesia; I10 Essential (primary) hypertension; E78.5 Hyperlipidemia, unspecified; G47.33 Obstructive sleep apnea (adult) (pediatric); Z99.89 Dependence on other enabling machines and devices; M19.90 Unspecified osteoarthritis, unspecified site; Z87.01 Personal history of pneumonia (recurrent); D72.829 Elevated white blood cell count, unspecified; H81.09 Meniere's disease, unspecified ear; Z90.49 Acquired absence of other specified parts of digestive tract; Z90.710 Acquired absence of both cervix and uterus; Z80.1 Family history of malignant neoplasm of trachea, bronchus and lung; Z82.0 Family history of epilepsy and other diseases of the nervous system; Z82.5 Family history of asthma and other chronic lower respiratory diseases; Z83.49 Family history of other endocrine, nutritional and metabolic diseases; Z79.84 Long term (current) use of oral hypoglycemic drugs; Z79.891 Long term (current) use of opiate analgesic; Z79.51 Long term (current) use of inhaled steroids; Z79.899 Other long term (current) drug therapy; Z99.81 Dependence on supplemental oxygen; Z88.2 Allergy status to sulfonamides; Z88.8 Allergy status to other drugs, medicaments and biological substances; Z88.6 Allergy status to analgesic agent; Z91.041 Radiographic dye allergy status; Z91.018 Allergy to other foods; Z91.010 Allergy to peanuts
CPT/HCPCS: 88305; 45385; J2001; J2704

== ENCOUNTER → 2019-09-30 | Outpatient (CLI) | payer MEDICARE, OTHER ==
--- NOTE | 2019-09-30 14:40 | CT ---
EXAMINATION TYPE: CT chest wo con DATE OF EXAM: 09/30/2019 COMPARISON: Prior chest CT June 25, 2019 and older outside study December 17, 2018 HISTORY: Pulmonary nodule, prior abnormal CT. CT DLP: 515.1 mGycm. Automated Exposure Control for Dose Reduction was Utilized. TECHNIQUE: CT scan of the thorax is performed without IV contrast. FINDINGS: LUNGS: Stable 3 mm right upper lobe nodule axial image 11 laterally. Additional scattered smaller nod ules are redemonstrated largest right upper lobe measures 6 x 5 mm image 16 not significantly changed from last 2 prior studies. 2 nodules right middle lobe under 6 mm axial image 24 stable. No new or e nlarging nodules. A few smaller left-sided nodules present. Dependent atelectasis bilateral lower mele gs. No pleural effusion or pneumothorax. MEDIASTINUM: Lack of IV contrast is noted to limit evaluation for mediastinal and especially hilar ad enopathy. There are no definitive greater than 1 cm hilar or mediastinal lymph nodes. No cardiomega ly or pericardial effusion is seen. OTHER: Mild/moderate multilevel spurring in the spine. IMPRESSION: Stable scattered small nodules. No new or enlarging nodules.
== END | disposition home or self-care (01) ==
LOC: RADCTMAIN 14:10
PROVIDERS: ATTEND Internal Medicine Sleep Medicine
DX: R91.8 Other nonspecific abnormal finding of lung field (principal)
CPT/HCPCS: 71250

== ENCOUNTER → 2019-10-28 | Outpatient (CLI) | payer MEDICARE, OTHER ==
[2019-10-28 16:12] LABS: African American GFR (CKD) 113.2 (60.0-200.0); Albumin 4.4 g/dL (3.80-4.90); Albumin/Globulin Ratio 1.91 (1.60-3.17); BUN/Creat Ratio 18.33 Ratio (12.00-20.00); Chol/HDL Ratio 3.98; Globulin 2.3 g/dL (1.6-3.3); LDL Cholesterol,Calculated 96.8 mg/dL (0.0-131.0); Non-African American GFR(CKD) 97.7 (60.0-200.0); Potassium 4.3 mmol/L (3.5-5.5); Total Bilirubin 0.5 mg/dL (0.2-1.2); Total Protein 6.7 g/dL (6.2-8.2); VLDL Calculation 34.2 mg/dL (5.00-40.00)
[2019-10-28 17:08] LABS: Hemoglobin A1C 7.4 % (4.0-6.0)
== END | disposition home or self-care (01) ==
LOC: LABWHC1 08:52
PROVIDERS: ATTEND Internal Medicine
DX: E11.65 Type 2 diabetes mellitus with hyperglycemia (principal); E55.9 Vitamin D deficiency, unspecified
CPT/HCPCS: 36415; 80053; 80061; 83036; 84443

== ENCOUNTER → 2019-12-07 | Outpatient (CLI) | payer MEDICARE, OTHER ==
--- NOTE | 2019-12-10 08:24 | MM ---
Reason for exam: screening (asymptomatic). Last mammogram was performed 4 years and 10 months ago. History: Patient is postmenopausal and has history of colon cancer at age 28. Family history of breast cancer in 2 maternal aunts at age 50. Benign left mammotome panel of the left breast, August 24, 2010. Benign core biopsy of the right breast, 2007. Physical Findings: A clinical breast exam by your physician is recommended on an annual basis and results should be correlated with mammographic findings. MG 3D Screening Mammo W/Cad Bilateral CC and MLO view(s) were taken. Prior study comparison: January 23, 2015, bilateral MG screening mammo w CAD. March 11, 2013, bilateral digital screening mammo w/CAD. There are scattered fibroglandular densities. Previous mammotome biopsy in the left breast. No significant changes when compared with prior studies. ASSESSMENT: Negative, BI-RAD 1 RECOMMENDATION: Routine screening mammogram of both breasts in 1 year.
== END | disposition home or self-care (01) ==
LOC: RADMAMWWP 09:34
PROVIDERS: ATTEND Family Medicine
DX: Z12.31 Encounter for screening mammogram for malignant neoplasm of breast (principal)
CPT/HCPCS: 77063; 77067

== ENCOUNTER → 2020-08-07 | Outpatient (CLI) | payer MEDICARE, OTHER ==
--- NOTE | 2020-08-09 20:44 | CT ---
EXAMINATION TYPE: CT chest wo con DATE OF EXAM: 08/07/2020 COMPARISON: CT chest 09/30/2019 HISTORY: Solitary Pulmonary Nodule CT DLP: 734 mGycm Automated exposure control for dose reduction was used. CONTRAST: CT scan of the chest is performed without intravenous contrast. FINDINGS: LUNGS: Lungs are grossly clear. There are several sub-6 mm pulmonary nodules of the bilateral lungs, all of which are unchanged. No new or enlarging nodules. The largest nodule in the right measures up to 6 mm within the right upper lobe (4:15). The largest pulmonary nodule on the left measures up to 4 mm within the left lower lobe (4:29). No pleural effusion. No pneumothorax. The tracheobronchial navi e is patent. MEDIASTINUM/SOFT TISSUES: No axillary, hilar, or mediastinal lymphadenopathy greater than 1 cm. Cardi ac size is normal. No pericardial effusion. No thoracic aortic aneurysm. UPPER ABDOMEN: No adrenal nodule. OSSEOUS: No acute osseous abnormality. IMPRESSION: Unchanged small bilateral pulmonary nodules versus 09/30/2019. No new or enlarging nodules.
== END | disposition home or self-care (01) ==
LOC: RADCTMAIN 12:08
PROVIDERS: ATTEND Internal Medicine Sleep Medicine
DX: R91.1 Solitary pulmonary nodule (principal)
CPT/HCPCS: 71250

== ENCOUNTER → 2021-05-24 | Outpatient (CLI) | payer MEDICARE, OTHER ==
--- NOTE | 2021-05-24 14:48 | XR ---
EXAMINATION TYPE: XR spine complete AP and Lat DATE OF EXAM: 05/24/2021 COMPARISON: NONE HISTORY: Pain TECHNIQUE: 2 views of the cervical, thoracic and lumbar spine FINDINGS: Large hypertrophic spurs are seen involving C2-C3. There is multilevel moderate degenerative disc dis ease, hypertrophic spurring and facet arthropathy. Grossly odontoid intact and prevertebral soft tiss ue structures within normal limits. There is diffuse osteopenia of the lumbar spine with multilevel mild to moderate degenerative disc di sease. Facet arthropathy appears advanced involving the lower lumbar region and there likely is a deg ree of foraminal encroachment. Anterior hypertrophic spurs at multiple levels. Thoracic spine demonstrates a slight curvature with multilevel hypertrophic and moderate to severe de generative disc disease. IMPRESSION: 1. Multilevel hypertrophic and degenerative changes as discussed above.
== END | disposition home or self-care (01) ==
LOC: RADXRMAIN 13:49
PROVIDERS: ATTEND Internal Medicine
DX: M47.812 Spondylosis without myelopathy or radiculopathy, cervical region (principal); M50.31 Other cervical disc degeneration, high cervical region
CPT/HCPCS: 72082

== ENCOUNTER → 2022-08-19 | Outpatient (CLI) | payer MEDICARE, OTHER ==
--- NOTE | 2022-08-19 14:38 | CT ---
EXAMINATION TYPE: CT chest wo con DATE OF EXAM: 08/19/2022 COMPARISON: HISTORY: SOLITARY PULMONARY NODULE CT DLP: 717 mGycm. Automated Exposure Control for Dose Reduction was Utilized. TECHNIQUE: CT scan of the thorax is performed without IV contrast. FINDINGS: LUNGS: Lungs are grossly clear. There are several sub-6 mm pulmonary nodules of the bilateral lungs, all of which are unchanged. No new or enlarging nodules. The largest nodule in the right measures up to 6 mm within the right upper lobe. The largest pulmonary nodule on the left measures up to 4 mm wi thin the left lower lobe. No pleural effusion. No pneumothorax. The tracheobronchial tree is patent MEDIASTINUM: Lack of IV contrast is noted to limit evaluation for mediastinal and especially hilar ad enopathy. There are no definitive greater than 1 cm hilar or mediastinal lymph nodes. No cardiomega ly or pericardial effusion is seen. Calcification of the aortic valve noted. OTHER: No additional significant abnormality is seen. Hypertrophic and degenerative changes of the s pine IMPRESSION: 1. Stable 6 mm bilateral pulmonary nodules unchanged from prior exam.
== END | disposition home or self-care (01) ==
LOC: RADCTMAIN 13:57
PROVIDERS: ATTEND Internal Medicine Sleep Medicine
DX: R91.8 Other nonspecific abnormal finding of lung field (principal)
CPT/HCPCS: 71250